=== PATIENT | female | born 1985 | race Caucasian/White ===

== ENCOUNTER 2022-12-29 17:28 | Emergency (ER) | payer OTHER ==
--- OUTSIDE RECORDS SUMMARY | 2022-12-29 17:33 | XMS REPORT | Continuity of Care Document ---
:1985 Author Organization [facility] t Address [address] [place] [address] Care Team Providers Name Role Phone John Lilly Attending Clinician Unavailable Alvarez Oro Attending Clinician Unavailable Karthik Watson Attending Clinician Unavailable Nena Pulido Attending Clinician Unavailable Simon Roberts Attending Clinician Unavailable Poonam Sanders I Attending Clinician Unavailable Stacy Dash Admitting Clinician Unavailable Luis Toussaint Admitting Clinician Unavailable Christoph Roth Admitting Clinician Unavailable Poonam Sanders I Admitting Clinician Unavailable Payers Payer Name Policy Type Policy Number Effective Date Expiration Date S ource Problems This patient has no known problems. Allergies, Adverse Reactions, Alerts Allergy Allergy Status Severity Reaction(s) Onset Inactive Treating Comm ents Source Name Type Date Date Clinician FENG DA Active PA ITCHING, [facility] PATCH RASH, 03-29 [place] SWELLING 00:00: [facility] nicotine DA Active PA ITCHING AND [facility] REDNESS TO - [place] AREA 00:00: [address] nicotine DA Active PA [facility] 4- [place] 00:00: [address] nicotine DA Active PA [facility] 2-09 [place] 00:00: [facility] nicotine DA Active PA ITCHING AND [facility] RED[facility] TO 2-09 [place] AREA 00:00: [facility] nicotine DA Active PA 2016- [facility] 0-30 [facility] 00:00: [facility] nicotine DA Active PA ITCHING AND 2016-12 [facility] REDNESS TO 0-30 [place] AREA 00:00: Maral [facility] Medications This patient has no known medications. Procedures Procedure Date / Time Performed Performing Clinician [facility] armond [id number] 2021-08-11 00:00:00 FLORO.03 [facility] [id number] 2021-08-10 00:00:00 HOUAN [facility] [id number] 2020-06-28 00:00:00 [facility] Encounters Start End Encounter Admission Attending Care Care Encounter Source Date/Time Date/Time Type Type Clinicians Facility Department ID 2021-03-28 Inpatient [facility] [id number] [facility] 14:15:09 03 [facility] 2021-03-09 Inpatient [facility] [id number] [facility] 02:15:57 00 [facility] 2021-01-10 Inpatient [facility] [id number] [facility] 15:39:19 49 [facility] 2020-06-28 Inpatient [facility] ER [id number] [facility] 04:12:00 98 [facility] 2022-12-05 2022-12-05 Emergency EM Lilly, [facility] ER [id number] [facility] 07:56:00 11:10:00 John 62 [facility] 2022-10-06 2022-10-07 Emergency EM Rauhut, [facility] ER [id number] [facility] 04:07:00 12:30:00 Medda 51 [facility] 2022-10-04 2022-10-04 Emergency EM Walter, [facility] ER [id number] [facility] 13:52:00 15:34:00 Karthik 36 [facility] 2021-09-20 2021-10-01 Outpatient EL Duaneri, [facility] PT [id number] [facility] 08:00:00 00:00:00 Ammar 91 [facility] 2021-08-23 2021-08-23 Inpatient EM Dancel, [facility] ER [id number] [facility] 13:31:00 18:13:00 Simon Morganu meghna [facility] 2021-08-18 2021-08-18 Outpatient NIRMAL Pulido [facility] PT [id number] [facility] 10:18:00 10:18:00 Amfelton 87 [facility] 2021-08-10 2021-08-17 Inpatient NIRAML Sanders [facility] OBPP [id number] [facility] 08:21:00 17:09:00 Poonam 64 [facility] Results Test Description Test Time Test Comments Results Result Comments Source DRUG OF ABUSE SCREEN URINE 2022-12-05 10:32:00 Test Item Value Reference Range Interpretation Comme nts UR COCAINE (test code = NEGATIVE NEGATIVE COCAU) UR MDMA (test code = MDMAQLU) POSITIVE NEGATIVE A If confirmatory testing required, contact laborat ory. UR CANNABINOIDS (test code = POSITIVE NEGATIVE A If confirmatory testing required, CANU) contact laborat ory. UR AMPHETAMINE (test code = POSITIVE NEGATIVE A If confirmatory testing required, AMPHU) contact laborat ory. UR BARBITURATE QUAL (test NEGATIVE NEGATIVE code = BARBQLU) UR BENZODIAZEPINE (test code NEGATIVE NEGATIVE = BENZU) UR OPIATES QUAL (test code = NEGATIVE NEGATIVE OPIAQLU) UR PHENCYCLIDINE (PCP) (test NEGATIVE NEGATIVE Urine Drug Abuse Screen provides code = PHENCU) preliminary r esults thatmay be confirmed by samara marrero methods (i.e., GC/MS) a t areference laboratory. Res ults of screen may not be usedin c riminal justice, job performance or professionalcre dential review, or custody issues. Negative [place] Level ng/ml ------- ----- Cocaine 300 Methampheta mine (Ecstacy) 500 Cannabinoids (T HC) 50 Amphetamine 1000 Barbiturat es 200 Benzodiazepines 200 Opiates 300 Phencyclidine ( PCP) 25 UA RFLX MICROSCOPIC [id number] 10:03:00 Test Item Value Reference Range Interpretation Comments UA COLOR (test code = COLU) Yellow YELLOW UA APPEARANCE (test code = Turbid CLEAR APPU) UA GLUCOSE DIPSTICK (test NORMAL mg/dL NEGATIVE code = DGLUU) UA BILIRUBIN DIPSTICK (test NEGATIVE NEGATIVE code = BILU) UA KETONE DIPSTICK (test NEGATIVE mg/dL NEGATIVE code = KETU) UA SPECIFIC GRAVITY (test 1.024 1.001-1.035 N code = SGU) UA BLOOD DIPSTICK (test code TRACE NEGATIVE = LATOYA) UA PH DIPSTICK (test code = 6.5 5.5-7.0 N ROGELIO) UA PROTEIN DIPSTICK (test 20 mg/dL NEGATIVE code = PROU) UA UROBILINOGEN DIPSTICK NORMAL mg/dL NORMAL (test code = URO) UA NITRITE DIPSTICK (test NEGATIVE NEGATIVE code = RUTHIE) UA LEUKOCYTE ESTERASE 250 NEGATIVE A DIPSTICK (test code = LEUU) UA COMMENT (test code = VOLUME 10-12 ML COMU) URINE SPECIMEN DESCRIPTION Clean Catch (test code = UASPEC) UA WBC (test code = WBCU) < 10 #/HPF 0-10 UA SQUAMOUS CELLS (test code 61 - 80 #/LPF <100 A = SQU) UA CULTURE NEEDED? (test Criteria not met code = UACULT) Indication for culture: RiskForSepsis-no oth srcURINE SOURCE: Clean CatchUA [id number] 10:03:00 Test Item Value Reference Range Interpretation Comments UA RBC (test code = RBCU) 6-10 #/HPF NONE SEEN A UA BACTERIA (test code = BACU) Trace HPF NONE SEEN UA MUCUS (test code = MUCU) 2+ #/lpf NONE SEEN Indication for culture: RiskForSepsis-no oth srcURINE SOURCE: Clean Catch- CT C- SPINE W/O [id number] 09:01:00 [facility] 1985 Sex: F Patient Name: TAYLOR SHULTZ Unit No: [id number] EXAMS: CPT CODE: [id number] CT C-SPINE W/O CONT 82832 Reason: R arm pain, numbness Exam: - CT HEAD/BRAIN W/O CONT, - CT C-SPINE W/O CONT Indication: altered mental status. Numbness. Weakness. Technique: Multidetector, helically acquisition images (5 mm slice thickness) were obtained from the base of the skull to the vertex without contrast enhan cement. Additional axial images through the cervical spine were obtained. Coronal and sagittal reconstructions were performed. This CT exam was performed using one or more of the following dose reduction techniques: Automated exposure control; Adjustment of the mA and/or kV according to patient size;Use of iterative reconstruction technique. Comparison: January 10, 2021 Findings: Brain: Ventricles are symmetric in shape and size. There is no evidence of hemorrhage, acute ischemic change or intra-/extra-axial fluid collections. The basal cisterns are well visualized. There is no mass lesion, mass effect or midline shift. The bony calvarium is intact. Paranasal sinuses and mastoid air cells are adequately aerated. Cervical spine: There is slight reversal of the normal cervical lordosis at the C4-5 level. Disc space narrowing with osteophytosis is seen at the C5-6 level. The vertebral body heights are preserved. The precervical soft tissues are within normal limits. The odontoid is well positioned within the lateral masses of C1. There is no bony encroachment on the central canal. There is no pneumothorax. Impression: There is no radiographic evidence of acute intracranial abnormality. No evidence of acute bony abnormality involving the cervical spine. Degenerative disc disease of the lower cervical spine. Location: C1 at 0901 Reported and signed by: Naya Erickson MD CC: Carmella Andino NP; Christoph Roth; John Lilly MD Technologist: Claribel Hunter CT Trscrpt Dt/ (0901)t.[email or web address] Orig Print D/T: S: 12/05/2022 (0 904) CTDI: DLP: [facility] NAME: TAYLOR SHULTZ [address] PHYS: [id number] - [place] [address] : 1985 AGE: 37 SEX: F LOC: CELINA PHONE #: [phone] EXAM DATE: 12/05/2022 STATUS: REG ER FAX #: RAD NO: DC Dt: PAGE 1 Signed Report- CT HEAD/BRAIN W/O CONT 2022-12-05 09:01:00 [facility] : 1985 Sex: F Patient Name: TAYLOR SHULTZ Unit No: [id number] EXAMS: CPT CODE: [id number] CT HEAD/BRAIN W/O CONT 69767 Reason: altered mental status Exam: - CT HEAD/BRAIN W/O CONT, - CT C-SPINE W/O CONT Indication: altered mental status. Numbness. Weakness. Technique: Multidetector, helically acquisition images (5 mm slice thickness) were obtained from the base of the skull to the vertex without contrast enhancement. Additional axial images through the cervical spine were obtained. Coronal and sagittal reconstructions were performed. This CT exam was performed using one or more of the following dose reduction techniques: Automated exposure control; Adjustment of the mA and/or kV according to patient size; Use of iterative reconstruction technique. Comparison: January 10, 2021 Findings: Brain: Ventricles are symmetric in shape and size. There is no evidence of hemorrhage, acute ischemic change or intra-/extra-axial fluid collections. The basal cisterns are well visualized. There is no mass lesion, mass effect or midline shift. The bony calvarium is intact. Paranasal sinuses and mastoid air cells areadequately aerated. Cervical spine: There is slight reversal of the normal cervical lordosis at the C4-5 level. Disc space narrowing with osteophytosis is seen at the C5-6 level. The vertebral body heights are preserved. The precervical soft tissues are within normal limits. The odontoid is well positioned within the lateral masses of C1. There is no bony encroachment on the central canal. There is no pneumothorax. Impression: There is no radiographic evidence of acute intracranial abnormality. No evidence of acute bony abnormality involving the cervical spine. Degenerative disc disease of the lower cervical spine. Location: C1 at 0901 Reported and signed by: Naya Erickson MD CC: Carmella Andino NP; Christoph Roth; John Lilly MD Technologist: Claribel Hunter CT Trscrpt Dt/ (900)t.[email or web address] Orig Print D/T: S: 12/05/2022(903) CTDI: DLP: [facility] NAME: TAYLOR SHULTZ [address] [facility] PHYS: [place] [address] : 1985 AGE: 37 SEX: F LOC: CELINA PHONE #: [phone] EXAM DATE: 12/05/2022 STATUS: REG ER FAX #: RAD NO: DC Dt: PAGE 1 Signed ReportBASI METABOLIC [id number] 08:50:00 Test Item Value Reference Range Interpretation Comments SODIUM (test code = 140 MMOL/L 133-145 N NA) POTASSIUM (test code 3.8 MMOL/L 3.6-5.2 N = K) CHLORIDE (test code 103 MMOL/L 100-108 N = CL) CARBON DIOXIDE (test 29 MMOL/L 22-32 N code = CO2) GLUCOSE (test code = 103 MG/DL 65-99 H Results of this assay GLU) method may be f alsely depressed orele vated if patient is taki ng sulfasalazine. BLOOD UREA NITROGEN 8 MG/DL 6-20 N (test code = BUN) GLOMERULAR 93 64-149 N The Glomerular FILTRATION RATE Filtration R ate is a (test code = GFR) calculated parameterbased on serum Creatinine, pat ient age and sex. GFR va luesless than 60 mL/min/ 1.73 square meters a re indicative ofCh ronic Kidney Disease. Values less than 15 mL/min/1.73squa re meters indicate Kidney failure. The calculation for GFR is based on the CK D-EPI (2020) calculat ion. This formulais race indifferent and is the recommended for susanna for GFRby the Natio nal Kidney Foundati on for Adults.The GFR will not calculate if th e sex is unknown or if thepatient's ag e is <18 years. CREATININE (test 0.83 MG/DL 0.60-1.00 N code = CREAT) CALCIUM (test code = 9.1 MG/DL 8.7-10.5 N CA) HEPATIC FUNCTION [id number] 08:50:00 Test Item Value Reference Range Interpretation Comments TOTAL PROTEIN (test 7.2 G/DL 6.4-8.2 N code = PROT) ALBUMIN (test code = 4.3 G/DL 3.4-5.0 N ALB) GLOBULIN (test code = 2.9 G/DL 1.5-3.8 N GLOB) ALBUMIN/GLOBULIN RATIO 1.5 1.1-2.2 N (test code = A/G) BILIRUBIN TOTAL (test 0.6 MG/DL 0.0-1.0 N code = BILT) BILIRUBIN DIRECT (test 0.2 MG/DL 0.0-0.3 N code = BILD) BILIRUBIN INDIRECT 0.4 MG/DL 0.0-0.7 N (test code = BILIND) SGOT/AST (test code = 18 Units/L 15-37 N Result s of this assay AST) method may be f alsely depressed orele vated if patient is t aking sulfasalazine. SGPT/ALT (test code = 23 Units/L 30-65 L Result s of this assay ALT) method may be f alsely depressed orele vated if patient is t aking sulfasalazine. ALKALINE PHOSPHATASE 49 Units/L 50-136 L TOTAL (test code = ALKP) [id number] 08:50:00 Test Item Value Reference Range Interpretation Comments CK (test code = CKT) 250 Units/L 26-192 H TROP-I HIGH [id number] 08:50:00 Test Item Value Reference Range Interpretation Comments TROP-I HIGH SENSITIVITY < 4 ng/L < 51 - T he use of serial (test code = TROPIHS) sampli ng and testing protocol is a recommended pra ctice.- An elevated tro ponin level alone is often not sufficient for diagnosis of myocardial infarction.Resu lts of this assay meth od may be falsely depr essed orelevated if p atient is taking high doses of Biotin. [id number] 08:50:00 Test Item Value Reference Range Interpretation Comments ALCOHOL (test code = < 3 MG/DL 0-10 N 0 - 10 : Should be ALC) interpreted as NEGATIVE. 11 - 50: None t o mild euphoria. 51 - 100: Mild influence on vi kelley and dark adaptation . > 80: Legal intoxicat ion; Depression of C NS; Increasing degr ee of poisoning. > 40 0: Fatalities repo rted. Results are for medical purposes only a nd not forlegal or emp loyment evaluative purp oses. HCG SERUM [id number] 08:37:00 Test Item Value Reference Range Interpretation Comments HCG SERUM QUAL NEGATIVE NEGATIVE False negativ es may occur (test code = when levels of hCGare below HCGQL) 10 mIU/ml. When is still suspec ana, a new specimenshould be obtained after 48 hours and re-tested.If wa iting 48 hours is not me dically advisable,the t est result should be confi rmed using aquantitative h CG assay. CBC W/AUTO [id number] 08:30:00 Test Item Value Reference Range Interpretation Comments WHITE BLOOD CELL (test code = 5.58 x10 3/uL 4.80-10.80 N WBC) RED BLOOD CELL (test code = 4.30 x10 6/uL 4.2-5.4 N RBC) HEMOGLOBIN (test code = HGB) 13.5 G/DL 12.0-16.0 N HEMATOCRIT (test code = HCT) 40.5 % 37-47 N MEAN CELL VOLUME (test code = 94.2 FL 81-99 N MCV) MEAN CELL HGB (test code = MCH) 31.4 PG 27-31 H MEAN CELL HGB CONCENTRATION 33.3 G/DL 33-37 N (test code = MCHC) RED CELL DISTRIBUTION WIDTH 13.2 % 11.5-14.5 N (test code = RDW) PLATELET COUNT (test code = 296 x10 3/uL 150-450 N PLT) MEAN PLATELET VOLUME (test code 9.7 FL 7.4-10.4 N = MPV) NEUTROPHIL % (test code = NT%) 50.6 % 42-86 N IMMATURE GRANULOCYTE % (test 0.2 % 0.0-2.0 N code = IG%) LYMPHOCYTE % (test code = LY%) 34.6 % 24-44 N MONOCYTE % (test code = MO%) 8.6 % 0.0-4.0 H EOSINOPHIL % (test code = EO%) 5.6 % 0.0-2.7 H BASOPHIL % (test code = BA%) 0.4 % 0.0-0.5 N NUCLEATED RBC % (test code = 0.0 % 0.0-0.0 N NRBC%) NEUTROPHIL # (test code = NT#) 2.83 x10 3/uL 1.8-7.7 N IMMATURE GRANULOCYTE # (test 0.01 x10 3/uL 0.00-0.03 N code = IG#) LYMPHOCYTE # (test code = LY#) 1.93 x10 3/uL 1.0-4.8 N MONOCYTE # (test code = MO#) 0.48 x10 3/uL 0.0-0.8 N EOSINOPHIL # (test code = EO#) 0.31 x10 3/uL 0.0-0.5 N BASOPHIL # (test code = BA#) 0.02 x10 3/uL 0.0-0.2 N NUCLEATED RBC # (test code = 0.0 X10 3/uL 0.0-0.2 N NRBC#) - XR CHEST 1 [id number] 08:21:00 [facility] : 1985 Sex: F Patient Name: TAYLOR SHULTZ Unit No: [id number] EXAMS: CPT CODE: [id number] XR CHEST 1 V [id number] Reason: altered mental status Chest one view AP 12/05/2022 8:21 AM CLINICAL HISTORY: Altered mentalstatus COMPARISON: 10/04/2022 LOCATION: W1 FINDINGS: The lungs are clear. Cardiomediastinal contours are within normal limits. The central pulmonary vasculature is not engorged. IMPRESSION: Unremarkablefrontal chest radiograph. at 0821 Reported and signed by: Khang Ye MD CC: Carmella Andino CONVERTER SUPERVISOR; Christoph Roth; John Lilly MD Technologist: Erwin Osullivan RT Trscrpt Dt/ (0821)[email or web address] Orig Print D/T: S: 12/05/2022 (0 824) [facility] NAME: TAYLOR SHULTZ [address] [facility] PHYS: John Rodriguez [place] [address] : 1985 AGE: 37 SEX: F LOC: CELINA PHONE #: [phone] EXAM DATE: 12/05/2022 STATUS: REG ER FAX #: RAD NO: DC Dt: PAGE 1 Signed ReportCOVID 19 Asymptomatic IH AG 2022-10-07 10:08:00 Test Item Value Reference Interpretation Comments Range COVID 19 NEGATIVE Negative " The Sadia YANCI S Antigen [facility]T Asymptomatic IH does not dif ferentiate AG (test code = betweenSARS- CoV and SARS-CoV-2 " COVNONPUIAG) The Sadia SARS Antigen EVERETT employs immunofluoresce ncetechnology in a sandwich giovanny gn that is used with Sadia tode tect nucleocapsid protein from SA RS-CoV and SARS-CoV-2.This test allows for the detection o f SARS-CoV [id number]. The test detects, but does not differentiate,b etween the two viruses. " Resu lts are for the identification of CKFY-MkA-5ycmli ocapsid protein antigen. Antige n is generallydetect able in upper respiratory spe cimens during the acutephase of i nfection. Positive result s indicate the presenceof alex l antigens, but clinical correl ation with patienthistory and other diagnostic info rmation is necessary todet ermine infection status. Positiv e results do not rule outbacteri al infection or co-infection wi th other viruses. Theagent detect ed may not be the definite cause of disease. " Negative result s should be treated as pres umptive " This test has not be en FDA cleared or approved; the t esthas been authorized by [facility] under an Emergency UseAu thorization (EUA) for use by labo ratories certified under the CLIA that meet the requir ements to perform moderate,high o r waived complexity test s. This test is authorized foru se at the Point of Care (POC), i.e., in patient caresettings op erating under a CLIA Certificat e of Waiver,Certific ate of Compliance, or Certificate of Accreditation [id number] 09:53:00 Test Item Value Reference Range Interpretation Comments ACETAMINOPHEN (test < 1 MCG/ML 10-30 L Acetamin ophen is code = ACET) possibly toxic at levels of: 1. m ore than 150 MCG/ML 4 hours post mario stion. 2. more than 50 MCG/ML 12 hours post ingestion. [id number] 09:53:00 Test Item Value Reference Range Interpretation Comments SALICYLATE (test code = 4 MG/DL 0-20 N Refe rence Range: TRAY) Analgesic...... ....... ..... < 10 mg/d l Therapeutic.... ....... ..... 15-20 mg/ dl Mild Toxicity....... ....... > 30 mg/dl Rocio re Toxicity....... ..... > 60 mg/dl DRUG OF ABUSE SCREEN [id number] 09:13:00 Test Item Value Reference Interpretation Comments Range UR COCAINE (test NEGATIVE NEGATIVE code = COCAU) UR MDMA (test code = NEGATIVE NEGATIVE MDMAQLU) UR CANNABINOIDS NEGATIVE NEGATIVE (test code = CANU) UR AMPHETAMINE (test NEGATIVE NEGATIVE code = AMPHU) UR BARBITURATE QUAL NEGATIVE NEGATIVE (test code = BARBQLU) UR BENZODIAZEPINE NEGATIVE NEGATIVE (test code = BENZU) UR OPIATES QUAL NEGATIVE NEGATIVE (test code = OPIAQLU) UR PHENCYCLIDINE NEGATIVE NEGATIVE Urine Drug Abuse Screen (PCP) (test code = provides preliminary PHENCU) results thatmay be confirmed by samara marrero methods (i.e., GC/MS) at [facility]. Results of scre en may not be usedin crimi nal justice, job performance or professionalcre dential review, or infa nt custody issues. Negativ e Beau[place] Level ng/ml ------- ----- Cocaine 300 Methamphetamine (Ecstacy) 500 Cannabinoid s (THC) 50 Amphetamine 100 0 Barbiturates 20 0 Benzodiazepines 200 Opiates 300 Phencyclid ine (PCP) 25 HEPATIC FUNCTION [id number] 07:26:00 Test Item Value Reference Range Interpretation Comments TOTAL PROTEIN (test 7.0 G/DL 6.4-8.2 N code = PROT) ALBUMIN (test code = 3.9 G/DL 3.4-5.0 N ALB) GLOBULIN (test code = 3.1 G/DL 1.5-3.8 N GLOB) ALBUMIN/GLOBULIN RATIO 1.3 1.1-2.2 N (test code = A/G) BILIRUBIN TOTAL (test 0.3 MG/DL 0.0-1.0 N code = BILT) BILIRUBIN DIRECT (test 0.1 MG/DL 0.0-0.3 N code = BILD) BILIRUBIN INDIRECT 0.2 MG/DL 0.0-0.7 N (test code = BILIND) SGOT/AST (test code = 13 Units/L 15-37 L Result s of this assay AST) method may be f alsely depressed orele vated if patient is t aking sulfasalazine. SGPT/ALT (test code = 16 Units/L 30-65 L Result s of this assay ALT) method may be f alsely depressed orele vated if patient is t aking sulfasalazine. ALKALINE PHOSPHATASE 63 Units/L 50-136 N TOTAL (test code = ALKP) THYROID STIMULATING [id number] 07:26:00 Test Item Value Reference Range Interpretation Comments THYROID STIMULATING 1.02 0.42-5.47 N Micro-In ternational HORMONE (test code = TSH) Un its/LResults of this assay method ma y be falsely depress ed orelevated if p atient is taking high doses of Biotin. BASIC METABOLIC [id number] 06:17:00 Test Item Value Reference Range Interpretation Comments SODIUM (test code = 143 MMOL/L 133-145 N NA) POTASSIUM (test code 3.8 MMOL/L 3.6-5.2 N = K) CHLORIDE (test code 107 MMOL/L 100-108 N = CL) CARBON DIOXIDE (test 27 MMOL/L 22-32 N code = CO2) GLUCOSE (test code = 93 MG/DL 65-99 N Results of this assay GLU) method may be f alsely depressed orele vated if patient is taki ng sulfasalazine. BLOOD UREA NITROGEN 13 MG/DL 6-20 N (test code = BUN) GLOMERULAR 98 64-149 N The Glomerular FILTRATION RATE Filtration R ate is a (test code = GFR) calculated parameterbased on serum Creatinine, pat ient age and sex. GFR va luesless than 60 mL/min/ 1.73 square meters a re indicative ofCh ronic Kidney Disease. Values less than 15 mL/min/1.73squa re meters indicate Kidney failure. The calculation for GFR is based on the CK D-EPI (2020) calculat ion. This formulais race indifferent and is the recommended for susnana for GFRby the Natio nal Kidney Foundati on for Adults.The GFR will not calculate if th e sex is unknown or if thepatient's ag e is <18 years. CREATININE (test 0.80 MG/DL 0.60-1.00 N code = CREAT) CALCIUM (test code = 8.9 MG/DL 8.7-10.5 N CA) [id number] 06:17:00 Test Item Value Reference Range Interpretation Comments ALCOHOL (test code = < 3 MG/DL 0-10 N 0 - 10 : Should be ALC) interpreted as NEGATIVE. 11 - 50: None t o mild euphoria. 51 - 100: Mild influence on vi kelley and dark adaptation . > 80: Legal intoxicat ion; Depression of C NS; Increasing degr ee of poisoning. > 40 0: Fatalities repo rted. Results are for medical purposes only a nd not forlegal or emp loyment evaluative purp oses. UR HCG [id number] 04:38:00 Test Item Value Reference Range Interpretation Comments UR HCG QUAL (test NEGATIVE NEGATIVE False nega tives may occur code = HCGQLU) when levels o f hCGare below 20 mIU/ml. When is still suspec ana, a new specimenshould be obtained after 48 hours and re-tested.If wa iting 48 hours is not me dically advisable,the t est result should be confi rmed using aquantitative h CG assay. UA RFLX [id number] 04:36:00 Test Item Value Reference Range Interpretation Comments UA COLOR (test code = Yellow YELLOW COLU) UA APPEARANCE (test code TURBID CLEAR = APPU) UA GLUCOSE DIPSTICK (test NEGATIVE mg/dL NEGATIVE code = DGLUU) UA BILIRUBIN DIPSTICK NEGATIVE NEGATIVE (test code = BILU) UA KETONE DIPSTICK (test 15 mg/dL NEGATIVE A code = KETU) UA SPECIFIC GRAVITY (test 1.025 1.001-1.035 N code = SGU) UA BLOOD DIPSTICK (test 3+ NEGATIVE A code = LATOYA) UA PH DIPSTICK (test code 6.0 5.5-7.0 N = ROGELIO) UA PROTEIN DIPSTICK (test 500 mg/dL NEGATIVE A code = PROU) UA UROBILINOGEN DIPSTICK NORMAL mg/dL NORMAL (test code = URO) UA NITRITE DIPSTICK (test NEGATIVE NEGATIVE code = RUTHIE) UA LEUKOCYTE ESTERASE 500 NEGATIVE A DIPSTICK (test code = LEUU) UA COMMENT (test code = LESS THAN 10 ML VOL COMU) URINE SPECIMEN Clean Catch DESCRIPTION (test code = UASPEC) UA [id number] 04:36:00 Test Item Value Reference Range Interpretation Comments UA WBC (test code = WBCU) 10 - 20 #/hpf <10 A UA RBC (test code = RBCU) 3-5 #/hpf NONE SEEN UA SQUAMOUS CELLS (test code > 100 #/lpf <100 A = SQU) UA CULTURE NEEDED? (test Criteria not met code = UACULT) UA BACTERIA (test code = 1+ #/hpf NONE SEEN BACU) CBC W/AUTO [id number] 04:31:00 Test Item Value Reference Range Interpretation Comments WHITE BLOOD CELL (test code = 8.33 x10 3/uL 4.80-10.80 N WBC) RED BLOOD CELL (test code = 4.21 x10 6/uL 4.2-5.4 N RBC) HEMOGLOBIN (test code = HGB) 13.1 G/DL 12.0-16.0 N HEMATOCRIT (test code = HCT) 40.4 % 37-47 N MEAN CELL VOLUME (test code = 96.0 FL 81-99 N MCV) MEAN CELL HGB (test code = MCH) 31.1 PG 27-31 H MEAN CELL HGB CONCENTRATION 32.4 G/DL 33-37 L (test code = MCHC) RED CELL DISTRIBUTION WIDTH 13.5 % 11.5-14.5 N (test code = RDW) PLATELET COUNT (test code = 369 x10 3/uL 150-450 N PLT) MEAN PLATELET VOLUME (test code 9.8 FL 7.4-10.4 N = MPV) NEUTROPHIL % (test code = NT%) 47.2 % 42-86 N LYMPHOCYTE % (test code = LY%) 41.7 % 24-44 N MONOCYTE % (test code = MO%) 8.3 % 0.0-4.0 H EOSINOPHIL % (test code = EO%) 2.6 % 0.0-2.7 N BASOPHIL % (test code = BA%) 0.2 % 0.0-0.5 N NEUTROPHIL # (test code = NT#) 3.93 x10 3/uL 1.8-7.7 N LYMPHOCYTE # (test code = LY#) 3.47 x10 3/uL 1.0-4.8 N MONOCYTE # (test code = MO#) 0.69 x10 3/uL 0.0-0.8 N EOSINOPHIL # (test code = EO#) 0.22 x10 3/uL 0.0-0.5 N BASOPHIL # (test code = BA#) 0.02 x10 3/uL 0.0-0.2 N - XR CHEST 1 [id number] 14:27:00 [facility] 1985 Sex: F Patient Name: TAYLOR SHULTZ Unit No: [id number] EXAMS: CPT CODE: [id number] XR CHEST 1 V 97089 Reason: COUGH HISTORY: chest pain Location code: B2 FINDINGS: Frontal view of the chest demonstrates normal cardiomediastinal silhouette. The trachea is midline. The lungs are clear. There is no effusion or pneumothorax. The bones are intact. IMPRESSION: No acute pulmonary process. at 1427 Reported and signed by: Maximino Hazel MD CC: Palomo Eagle Technologist: Wendie Au RT CT; Ernie Carter Students Trscrpt Dt/ (1427)Marilou.RK5 Orig Print D/T: S: 10/04/2022 (1430) [place] [facility] NAME: TAYLOR SHULTZ [facility] [address] PHYS: PEPSEAN.Demian - Karthik Watson MD [address] : 1985 AGE: 36 SEX: F [place], [place] [address] LOC: D.PER PHONE #: [phone] EXAM DATE: 10/04/2022 STATUS: PRE ER FAX #: RAD NO: DC Dt: PAGE 1 Signed ReportUA RFLX MICROSCOPIC [id number] 16:15:00 Test Item Value Reference Range Interpretation Comments UA COLOR (test code = COLU) YELLOW YELLOW UA APPEARANCE (test code = CLEAR CLEAR APPU) UA GLUCOSE DIPSTICK (test NEGATIVE mg/dL NEGATIVE code = DGLUU) UA BILIRUBIN DIPSTICK (test NEGATIVE NEGATIVE code = BILU) UA KETONE DIPSTICK (test NEGATIVE mg/dL NEGATIVE code = KETU) UA SPECIFIC GRAVITY (test 1.025 1.001-1.035 N code = SGU) UA BLOOD DIPSTICK (test code 3+ NEGATIVE A = LATOYA) UA PH DIPSTICK (test code = 5.0 5.5-7.0 L ROGELIO) UA PROTEIN DIPSTICK (test 15 mg/dL NEGATIVE A code = PROU) UA UROBILINOGEN DIPSTICK NORMAL mg/dL NORMAL (test code = URO) UA NITRITE DIPSTICK (test NEGATIVE NEGATIVE code = RUTHIE) UA LEUKOCYTE ESTERASE 100 NEGATIVE A DIPSTICK (test code = LEUU) UA COMMENT (test code = VOLUME 10-12 ML COMU) URINE SPECIMEN DESCRIPTION Clean Catch (test code = UASPEC) UA WBC (test code = WBCU) < 10 #/hpf <10 UA SQUAMOUS CELLS (test code 0 - 20 #/lpf <100 = SQU) UA CULTURE NEEDED? (test Criteria not met code = UACULT) Indication for culture: RiskForSepsis-no oth srcURINE SOURCE: ccUA MICROSCOPIC 2021-08-23 16:15:00 Test Item Value Reference Range Interpretation Comments UA RBC (test code = RBCU) 3-5 #/hpf NONE SEEN UA BACTERIA (test code = BACU) 1+ #/hpf NONE SEEN UA MUCUS (test code = MUCU) 2+ #/lpf NONE SEEN A Indication for culture: RiskForSepsis-no oth srcURINE SOURCE: ccCOMPREHENSIVE METABOLIC [id number] 15:48:00 Test Item Value Reference Range Interpretation Comments SODIUM (test code = 140 MMOL/L 133-145 N NA) POTASSIUM (test code = 3.2 MMOL/L 3.6-5.2 L K) CHLORIDE (test code = 103 MMOL/L 100-108 N CL) CARBON DIOXIDE (test 27 MMOL/L 22-32 N code = CO2) GLUCOSE (test code = 92 MG/DL 65-99 N Results of this GLU) assay method ma y be falsely depress ed orelevated if patient is taki ng sulfasalazine. BLOOD UREA NITROGEN 20 MG/DL 6-20 N (test code = BUN) GLOMERULAR FILTRATION 66 64-149 N Report ing units: RATE (test code = GFR) mL/mi n/1.73m\\S\\2 (Modified MDRD Formula) CREATININE (test code 0.96 MG/DL 0.60-1.00 N = CREAT) TOTAL PROTEIN (test 7.9 G/DL 6.4-8.2 N code = PROT) ALBUMIN (test code = 3.7 G/DL 3.4-5.0 N ALB) GLOBULIN (test code = 4.2 G/DL 1.5-3.8 H GLOB) ALBUMIN/GLOBULIN RATIO 0.9 1.1-2.2 L (test code = A/G) CALCIUM (test code = 8.9 MG/DL 8.7-10.5 N CA) BILIRUBIN TOTAL (test 0.5 MG/DL 0.0-1.0 N code = BILT) SGOT/AST (test code = 12 Units/L 15-37 L Result s of this AST) assay method ma y be falsely depress ed orelevated if patient is taki ng sulfasalazine. SGPT/ALT (test code = 19 Units/L 30-65 L Result s of this ALT) assay method ma y be falsely depress ed orelevated if patient is taki ng sulfasalazine. ALKALINE PHOSPHATASE 104 Units/L 50-136 N TOTAL (test code = ALKP) CBC W/AUTO [id number] 15:41:00 Test Item Value Reference Range Interpretation Comments WHITE BLOOD CELL (test code = 8.40 x10 3/uL 4.80-10.80 N WBC) RED BLOOD CELL (test code = 3.14 x10 6/uL 4.2-5.4 L RBC) HEMOGLOBIN (test code = HGB) 9.8 G/DL 12.0-16.0 L HEMATOCRIT (test code = HCT) 30.3 % 37-47 L MEAN CELL VOLUME (test code = 96.5 FL 81-99 N MCV) MEAN CELL HGB (test code = MCH) 31.2 PG 27-31 H MEAN CELL HGB CONCENTRATION 32.3 G/DL 33-37 L (test code = MCHC) RED CELL DISTRIBUTION WIDTH 12.9 % 11.5-14.5 N (test code = RDW) PLATELET COUNT (test code = 699 x10 3/uL 150-450 H PLT) MEAN PLATELET VOLUME (test code 9.0 FL 7.4-10.4 N = MPV) NEUTROPHIL % (test code = NT%) 56.0 % 42-86 N LYMPHOCYTE % (test code = LY%) 32.0 % 24-44 N MONOCYTE % (test code = MO%) 6.9 % 0.0-4.0 H EOSINOPHIL % (test code = EO%) 4.4 % 0.0-2.7 H BASOPHIL % (test code = BA%) 0.7 % 0.0-0.5 H NEUTROPHIL # (test code = NT#) 4.70 x10 3/uL 1.8-7.7 N LYMPHOCYTE # (test code = LY#) 2.69 x10 3/uL 1.0-4.8 N MONOCYTE # (test code = MO#) 0.58 x10 3/uL 0.0-0.8 N EOSINOPHIL # (test code = EO#) 0.37 x10 3/uL 0.0-0.5 N BASOPHIL # (test code = BA#) 0.06 x10 3/uL 0.0-0.2 N ACUTE HEPATITIS [id number] 06:11:00 Test Item Value Reference Range Interpretation Comments AB HEPATITIS A IGM Negative Negative (test code = HAVMAB) AG HEPATITIS B Negative Negative SURFACE (test code = HBSAG) AB HEPATITIS B CORE Negative Negative IGM (test code = HBCMAB) AB HEPATITIS C (test < 0.1 0.0-0.9 INFCE R esult Units: s/co code = HCVAB) ratio Negative : < 0.8 Indeterminate: 0.8 - 0.9 Positive: > 0.9 The CDC recommends that a positive HCV an tibody result be follo wed up with a HCV Nucl eic Acid Amplification t est ([id number]).Perfor med At: [facility] [id number] [facility] [place] [id number] lilliam Emmanuel MD Ph:[phone] [id number] 17:38:00 Test Item Value Reference Range Interpretation Comments AMMONIA (test code = 24 UMOL/L 11-35 N Results of this assay AMM) method may be f alsely depressed orele vated if patient is taki ng sulfasalazine. COMPREHENSIVE METABOLIC [id number] 17:38:00 Test Item Value Reference Range Interpretation Comments SODIUM (test code = 139 MMOL/L 133-145 N NA) POTASSIUM (test code = 4.4 MMOL/L 3.6-5.2 N K) CHLORIDE (test code = 102 MMOL/L 100-108 N CL) CARBON DIOXIDE (test 28 MMOL/L 22-32 N code = CO2) GLUCOSE (test code = 108 MG/DL 65-99 H Results of this GLU) assay method ma y be falsely depress ed orelevated if patient is taki ng sulfasalazine. BLOOD UREA NITROGEN 16 MG/DL 6-20 N (test code = BUN) GLOMERULAR FILTRATION 68 64-149 N Report ing units: RATE (test code = GFR) mL/mi n/1.73m\\S\\2 (Modified MDRD Formula) CREATININE (test code 0.94 MG/DL 0.60-1.00 N = CREAT) TOTAL PROTEIN (test 6.2 G/DL 6.4-8.2 L code = PROT) ALBUMIN (test code = 2.7 G/DL 3.4-5.0 L ALB) GLOBULIN (test code = 3.5 G/DL 1.5-3.8 N GLOB) ALBUMIN/GLOBULIN RATIO 0.8 1.1-2.2 L (test code = A/G) CALCIUM (test code = 9.0 MG/DL 8.7-10.5 N CA) BILIRUBIN TOTAL (test 0.2 MG/DL 0.0-1.0 N code = BILT) SGOT/AST (test code = 16 Units/L 15-37 N Result s of this AST) assay method ma y be falsely depress ed orelevated if patient is taki ng sulfasalazine. SGPT/ALT (test code = 36 Units/L 30-65 N Result s of this ALT) assay method ma y be falsely depress ed orelevated if patient is taki ng sulfasalazine. ALKALINE PHOSPHATASE 112 Units/L 50-136 N TOTAL (test code = ALKP) THYROID STIMULATING [id number] 17:38:00 Test Item Value Reference Range Interpretation Comments THYROID STIMULATING 1.61 0.42-5.47 N Micro-In ternational HORMONE (test code = TSH) Un its/LResults of this assay method ma y be falsely depress ed orelevated if p atient is taking high doses of Biotin. CBC W/AUTO [id number] 17:15:00 Test Item Value Reference Range Interpretation Comments WHITE BLOOD CELL (test code = 8.96 x10 3/uL 4.80-10.80 N WBC) RED BLOOD CELL (test code = 2.99 x10 6/uL 4.2-5.4 L RBC) HEMOGLOBIN (test code = HGB) 9.4 G/DL 12.0-16.0 L HEMATOCRIT (test code = HCT) 28.5 % 37-47 L MEAN CELL VOLUME (test code = 95.3 FL 81-99 N MCV) MEAN CELL HGB (test code = MCH) 31.4 PG 27-31 H MEAN CELL HGB CONCENTRATION 33.0 G/DL 33-37 N (test code = MCHC) RED CELL DISTRIBUTION WIDTH 12.4 % 11.5-14.5 N (test code = RDW) PLATELET COUNT (test code = 582 x10 3/uL 150-450 H PLT) MEAN PLATELET VOLUME (test code 9.3 FL 7.4-10.4 N = MPV) NEUTROPHIL % (test code = NT%) 66.8 % 42-86 N IMMATURE GRANULOCYTE % (test 4.2 % 0.0-2.0 H code = IG%) LYMPHOCYTE % (test code = LY%) 21.0 % 24-44 L MONOCYTE % (test code = MO%) 5.1 % 0.0-4.0 H EOSINOPHIL % (test code = EO%) 2.3 % 0.0-2.7 N BASOPHIL % (test code = BA%) 0.6 % 0.0-0.5 H NUCLEATED RBC % (test code = 0.0 % 0.0-0.0 N NRBC%) NEUTROPHIL # (test code = NT#) 5.98 x10 3/uL 1.8-7.7 N IMMATURE GRANULOCYTE # (test 0.38 x10 3/uL 0.00-0.03 H code = IG#) LYMPHOCYTE # (test code = LY#) 1.88 x10 3/uL 1.0-4.8 N MONOCYTE # (test code = MO#) 0.46 x10 3/uL 0.0-0.8 N EOSINOPHIL # (test code = EO#) 0.21 x10 3/uL 0.0-0.5 N BASOPHIL # (test code = BA#) 0.05 x10 3/uL 0.0-0.2 N NUCLEATED RBC # (test code = 0.0 X10 3/uL 0.0-0.2 N NRBC#) UA RFLX MICROSCOPIC [id number] 14:55:00 Test Item Value Reference Range Interpretation Comments UA COLOR (test code = COLU) Light-Yellow YELLOW UA APPEARANCE (test code = CLEAR CLEAR APPU) UA GLUCOSE DIPSTICK (test NORMAL mg/dL NEGATIVE code = DGLUU) UA BILIRUBIN DIPSTICK (test NEGATIVE NEGATIVE code = BILU) UA KETONE DIPSTICK (test NEGATIVE mg/dL NEGATIVE code = KETU) UA SPECIFIC GRAVITY (test 1.014 1.001-1.035 N code = SGU) UA BLOOD DIPSTICK (test code 3+ NEGATIVE A = LATOYA) UA PH DIPSTICK (test code = 7.0 5.5-7.0 N ROGELIO) UA PROTEIN DIPSTICK (test NEGATIVE mg/dL NEGATIVE code = PROU) UA UROBILINOGEN DIPSTICK NORMAL mg/dL NORMAL (test code = URO) UA NITRITE DIPSTICK (test NEGATIVE NEGATIVE code = RUTHIE) UA LEUKOCYTE ESTERASE NEGATIVE NEGATIVE DIPSTICK (test code = LEUU) UA COMMENT (test code = VOLUME 10-12 ML COMU) URINE SPECIMEN DESCRIPTION Clean Catch (test code = UASPEC) UA WBC (test code = WBCU) < 10 #/HPF 0-10 UA SQUAMOUS CELLS (test code 81 - 100 #/LPF <100 A = SQU) UA CULTURE NEEDED? (test Criteria not met code = UACULT) Indication for culture: Dysuria/FrequencyURINE SOURCE: Clean CatchUA MICROSCOPIC 2021-08-16 14:55:00 Test Item Value Reference Range Interpretation Comments UA RBC (test code = RBCU) >50 #/HPF NONE SEEN A UA MUCUS (test code = MUCU) RARE #/lpf NONE SEEN Indication for culture: Dysuria/FrequencyURINE SOURCE: Clean CatchUA RFLX MICROSCOPIC [id number] 14:51:00 Test Item Value Reference Range Interpretation Comments UA COLOR (test code = COLU) Light-Yellow YELLOW UA APPEARANCE (test code = CLEAR CLEAR APPU) UA GLUCOSE DIPSTICK (test NORMAL mg/dL NEGATIVE code = DGLUU) UA BILIRUBIN DIPSTICK (test NEGATIVE NEGATIVE code = BILU) UA KETONE DIPSTICK (test code NEGATIVE mg/dL NEGATIVE = KETU) UA SPECIFIC GRAVITY (test 1.014 1.001-1.035 N code = SGU) UA BLOOD DIPSTICK (test code 3+ NEGATIVE A = LATOYA) UA PH DIPSTICK (test code = 7.0 5.5-7.0 N ROGELIO) UA PROTEIN DIPSTICK (test NEGATIVE mg/dL NEGATIVE code = PROU) UA UROBILINOGEN DIPSTICK NORMAL mg/dL NORMAL (test code = URO) UA NITRITE DIPSTICK (test NEGATIVE NEGATIVE code = RUTHIE) UA LEUKOCYTE ESTERASE NEGATIVE NEGATIVE DIPSTICK (test code = LEUU) UA COMMENT (test code = COMU) VOLUME 10-12 ML URINE SPECIMEN DESCRIPTION Clean Catch (test code = UASPEC) UA WBC (test code = WBCU) #/hpf <10 UA SQUAMOUS CELLS (test code #/lpf <100 = SQU) UA CULTURE NEEDED? (test code = UACULT) Indication for culture: Dysuria/FrequencyURINE SOURCE: Clean CatchUA MICROSCOPIC 2021-08-16 14:51:00 Test Item Value Reference Range Interpretation Comments UA RBC (test code = RBCU) #/HPF NONE SEEN Indication for culture: Dysuria/FrequencyURINE SOURCE: Clean CatchUA RFLX MICROSCOPIC [id number] 14:51:00 Test Item Value Reference Range Interpretation Comments UA COLOR (test code = COLU) Light-Yellow YELLOW UA APPEARANCE (test code = CLEAR CLEAR APPU) UA GLUCOSE DIPSTICK (test NORMAL mg/dL NEGATIVE code = DGLUU) UA BILIRUBIN DIPSTICK (test NEGATIVE NEGATIVE code = BILU) UA KETONE DIPSTICK (test code NEGATIVE mg/dL NEGATIVE = KETU) UA SPECIFIC GRAVITY (test 1.014 1.001-1.035 N code = SGU) UA BLOOD DIPSTICK (test code 3+ NEGATIVE A = LATOYA) UA PH DIPSTICK (test code = 7.0 5.5-7.0 N ROGELIO) UA PROTEIN DIPSTICK (test NEGATIVE mg/dL NEGATIVE code = PROU) UA UROBILINOGEN DIPSTICK NORMAL mg/dL NORMAL (test code = URO) UA NITRITE DIPSTICK (test NEGATIVE NEGATIVE code = RUTHIE) UA LEUKOCYTE ESTERASE NEGATIVE NEGATIVE DIPSTICK (test code = LEUU) UA COMMENT (test code = COMU) VOLUME 10-12 ML URINE SPECIMEN DESCRIPTION Clean Catch (test code = UASPEC) UA WBC (test code = WBCU) #/hpf <10 UA SQUAMOUS CELLS (test code #/lpf <100 = SQU) UA CULTURE NEEDED? (test code = UACULT) Indication for culture: Dysuria/FrequencyURINE SOURCE: Clean CatchUA MICROSCOPIC 2021-08-16 14:51:00 Test Item Value Reference Range Interpretation Comments UA RBC (test code = RBCU) #/HPF NONE SEEN Indication for culture: Dysuria/FrequencyURINE SOURCE: Clean CatchSURGICAL 2021-08-14 15:02:00 Test Item Value Reference Range Interpretation Comments SURGICAL (test code = SURG) RUN DATE: 08/14/21 [facility] LAB LIVE PAGE 1 RUN TIME: 1502 Specimen Inquiry RUN USER: INTERFACE PATIENT: TAYLOR SHULTZ LOC: MarysolAmandaArmond U #: [id number] AGE/SX: 35/F ROOM: Marysol62 RE08/10/21REG DR: Poonam Sanders MD : [birth year] BED: 1 DIS: STATUS: ADM IN TLOC: SPEC #: [id number] RECD: 08/10/21 STATUS: KHADAR CROWLEY #: [id number] MILO: 08/10/[address]: Poonam Sanders MD ENTERED: 08/10/21 SP TYPE: SURGICAL OTHR DR: ORDERED: PATH5 CODES: [id number] - PLACENTA, NOS HISTOLOGY: TISSUE ID BLK PCS ASAD LEV PROCEDURE DISPOSITION ____ ___ ___ ___ PLACENTA, NOS A 1-3 ICD CODES: O43.90 - UNSPECIFIED PLACENTAL DISORDER, UNSPECIFIED TRIMESTER PROCEDURES: PATHGM5 (Incomplete) TISSUES: A. PLACENTA, NOS CLINICAL HISTORY 31.4 IUP; LABOR; PPROM FINAL DIAGNOSIS PLACENTA: 1. UMBILICAL CORD - THREE VESSEL CORD. 2. MEMBRANES - NO PATHOLOGIC CHANGE. 3. PLACENTAL DISC - VILLOUS PATTERN COMPATIBLE WITH GESTATIONAL AGE. Job - [id number] GROSS DESCRIPTION The case is received in one formalin container labeled with the patient's name and source. The specimen is designated "placenta" and consists of a 614.94 gram, 18 x 18 x 2.5 cm [place] placenta with attached membranes and umbilical cord. The pink-monae wrinkled and translucent membranes are marginally inserted. The white-monae trivascular umbilical cord is received in two pieces, and measures 21 cm in length x 0.8-1.2 cm in diameter. The cord displays vessels that appear to be tortuous throughout 80% of the length of the cord. The umbilical cord is eccentrically located measuring 4 cm to the closest placental edge. The blue-arango surface displays surface vessels that are small-medium caliber and in their usual arborizing pattern. The red-brown maternal surface displays moderately disrupted cotyledons with a minimal amount of loosely adherent clotted blood and a scant amount of microcalcifications. Sectioning reveals a red-brown, spongy cut surface, with no discrete masses or lesions identified grossly. CONTINUED ON NEXT PAGE RUN DATE: 08/14/21 [facility] LAB LIVE PAGE 2 RUN TIME: 1502 Specimen Inquiry RUN USER: INTERFACE SPEC #: [id number] PATIENT: TAYLOR SHULTZ #[id number] (Continued) GROSS DESCRIPTION (Continued) [employer] sections are submitted in three blocks to include membrane roll and umbilical cord, and maternal surfaces. MICROSCOPIC DESCRIPTION Sections of the umbilical cord show a three vessel cord without inflammatory changes. Sections of the membranes show an intact chorion and amnion. No chorioamnionitis is seen. Sections of the placental disc show a villous pattern compatible with the stated gestational age. No infarcts are seen. Job - [id number] Job - [id number] SPECIMEN PROCESSING * PROCESSING PERFORMED AT [facility] SURGERY INFORMATION Surgery date 08/10/21 Surgeon(s): DR. SANDERS Signed SIGNATURE ON FILE Justice Sweeney 08/14/21 1502 END OF REPORT AG HEPATITIS B [id number] 12:11:00 Test Item Value Reference Range Interpretation Comments AG HEPATITIS B SURFACE Negative Negative Perfo rmed At: HD (test code = HBSAG) [facility] [address] [place], [place] [id number] Emmanuel MD Ph:[phone] HIV 1 2 COMBO AG/AB [id number] 12:11:00 Test Item Value Reference Range Interpretation Comments HIV 1 2 COMBO AG/AB Non Reactive Non Reactive Performe d At: HD SCREEN (test code = [facility] [address] [id number]) [place], [place] [id number] Emmanuel MD Ph:[phone] HIV 4th Generat ion Detects HIV-spe cific antibodies and HIV-p24 antigen. : with patient consentRAPID PLASMA [id number] 09:53:00 Test Item Value Reference Range Interpretation Comments RAPID PLASMA REAGIN (test code = Nonreactive Nonreactive RPR) BASIC METABOLIC [id number] 05:24:00 Test Item Value Reference Range Interpretation Comments SODIUM (test code = 134 MMOL/L 133-145 N NA) POTASSIUM (test code = 4.2 MMOL/L 3.6-5.2 N K) CHLORIDE (test code = 101 MMOL/L 100-108 N CL) CARBON DIOXIDE (test 30 MMOL/L 22-32 N code = CO2) GLUCOSE (test code = 96 MG/DL 65-99 N Results of this assay GLU) method may be f alsely depressed orele vated if patient is t aking sulfasalazine. BLOOD UREA NITROGEN 6 MG/DL 6-20 N (test code = BUN) GLOMERULAR FILTRATION 108 64-149 N Report ing units: RATE (test code = GFR) mL/mi n/1.73m\\S\\2 (Modified MDRD Formula) CREATININE (test code 0.63 MG/DL 0.60-1.00 N = CREAT) CALCIUM (test code = 7.8 MG/DL 8.7-10.5 L CA) HGB [id number] 04:54:00 Test Item Value Reference Range Interpretation Comments HEMOGLOBIN (test code = HGB) 7.9 G/DL 12.0-16.0 L HEMATOCRIT (test code = HCT) 24.4 % 37-47 L MEAN CELL HGB CONCENTRATION (test 32.4 G/DL 33-37 L code = MCHC) - US SOFT TISSUE - [id number] 17:10:00 [facility] : 1985 Sex: F Patient Name: TAYLOR SHULTZ Unit No: [id number] EXAMS: CPT CODE: [id number] US SOFT TISSUE - TORSO 80391 - US SOFT TISSUE - TORSO REASON FOR EXAM: 35-year-old female presenting for possible left axillaryabscess. COMPARISON: None. TECHNIQUE: Grayscale and color flow imaging of the left axilla was performed. FINDINGS: There is a 4.8 cm isoechoic mass with irregular borders in the left axilla with overlying skin thickening. No internal blood flow is identified however, there is mild peripheral blood flow. No drainable fluid collections are identified. IMPRESSION: 4.8 cm mass in the left axilla may represent phlegmonous changes. No drainable fluid collection identified. Recommend evaluation at dedicated breast center for further evaluation. BIRADS: CATEGORY 0: INCOMPLETE. NEED ADDITIONAL IMAGING EVALUATION FOR INTERNAL CODING PURPOSES ONLY RESULT CODE: 0 Location:C1 at 1710 Reported and signed by: Norma Weaver MD CC: Dedrick Killian Jr, MD; Poonam Sanders MD; Genesis Ledesma NP Technologist: Jessica HINKLE Trnscrbd D/ (1710) [email or web address] Orig Print D/T: S: 08/10/2021 (4283) Probe: [facility] Area NAME: TYALOR SHULTZ [place] [address] PHYS: [email or web address] - Dedrick [place] [address] : 1985 AGE: 35 SEX: F LOC: D.Y251 1 PHONE #: [phone] EXAM DATE: 08/10/2021 STATUS: ADM IN FAX #: RAD NO: Page 1 Signed Report- [facility]/[id number] 11:55:00 [facility] [place] : 1985 Sex: F Patient Name: TAYLOR SHULTZ Unit No: [id number] EXAMS: CPT CODE: [id number] DUP VEIN UNI/LTD [id number] DUPLEX VENOUS SONOGRAPHY Date:08/10/2021 11:00 AM History: LLE PAIN. Comparison: None available. Technique: The lower extremity veins were evaluated with arango scale, color Doppler and pulse wave ultrasound.Findings: Left Lower Extremity: No hypoechoic intraluminal filling defects. Appropriate compression, augmentation and phasicity. IMPRESSION: No evidence of deep vein thrombosis (DVT) or superficial venous thrombosis (SVT). Report signed by radiologist: Vicente Desir M.D., MBA. at 1155 Reported and signed by: Vicente Desir MD CC: Poonam Sanders MD Technologist: Dhruv HINKLE Trnscrbd D/ ([id number]) [id number] Orig Print D/T: S: 08/10/2021 ([id number]) Probe: [facility] NAME: TAYLOR SHULTZ [id number] PHYS: [place] [id number] : 1985 AGE: 35 SEX: F LOC: D.[id number] 1 PHONE #: [phone] EXAM DATE: 08/10/2021 STATUS: ADM IN FAX #: RAD NO: Page 1 Signed ReportDRUG OF ABUSE SCREEN [id number] 10:14:00 Test Item Value Reference Interpretation Comments Range UR COCAINE (test NEGATIVE NEGATIVE code = COCAU) UR MDMA (test code = NEGATIVE NEGATIVE MDMAQLU) UR CANNABINOIDS NEGATIVE NEGATIVE (test code = CANU) UR AMPHETAMINE (test POSITIVE NEGATIVE A If conf irmatory testing code = AMPHU) required, cont act laboratory. UR BARBITURATE QUAL NEGATIVE NEGATIVE (test code = BARBQLU) UR BENZODIAZEPINE NEGATIVE NEGATIVE (test code = BENZU) UR OPIATES QUAL NEGATIVE NEGATIVE (test code = OPIAQLU) UR PHENCYCLIDINE NEGATIVE NEGATIVE Urine Drug Abuse Screen (PCP) (test code = provides preliminary PHENCU) results thatmay be confirmed by al ternate methods (i.e., GC/[facility]) [facility]. Results of scre en may not be usedin crimi nal justice, job performance or professionalcre dential review, or infa nt custody issues. Negativ e [place] Level ng/ml ------- ----- Cocaine 300 Methamphetamine (Ecstacy) 500 Cannabinoid s (THC) 50 Amphetamine 100 0 Barbiturates 20 0 Benzodiazepines 200 Opiates 300 Phencyclid ine (PCP) 25 COVID 19 Asymptomatic IH [id number] 09:50:00 Test Item Value Reference Interpretation Comments Range COVID 19 NEGATIVE Negative " The [employer] YANCI S Antigen [facility] Asymptomatic IH does not dif ferentiate AG (test code = betweenSARS- CoV and SARS-CoV-2 " COVNONPUIAG) The [employer] SARS Antigen [employer] employs immunofluoresce ncetechnology in a sandwich giovanny gn that is used with Sad[facility] tode tect nucleocapsid protein from SA RS-CoV and SARS-CoV-2.This test allows for the detection o f SARS-CoV [id number]-[id number]-3. The test detects, but does not differentiate,b etween the two viruses. " Resu lts are for the identification of NHSZ-FvB-3mnuzc ocapsid protein antigen. Antige n is generallydetect able in upper respiratory spe cimens during the acutephase of i nfection. Positive result s indicate the presenceof alex l antigens, but clinical correl ation with patienthistory and other diagnostic info rmation is necessary todet ermine infection status. Positiv e results do not rule outbacteri al infection or co-infection wi th other viruses. Theagent detect ed may not be the definite cause of disease. " Negative result s should be treated as pres umptive " This test has not be en FDA cleared or approved; the t esthas been authorized by [facility] under an Emergency UseAu thorization (EUA) for use by [facility] certified under the CLIA that meet the requir ements to perform moderate,high o r waived complexity test s. This test is authorized foru se at the Point of Care (POC), i.e., in patient caresettings op erating under a CLIA Certificat e of Waiver,Certific ate of Compliance, or Certificate of Accreditation PROTHROMBIN [id number] 09:19:00 Test Item Value Reference Range Interpretation Comments PROTHROMBIN TIME 10.6 SECONDS 9.6-12.3 N PATIENT (test code = PTP) INTERNATIONAL NORMAL 0.94 Recomme nded INR range RATIO (test code = (warfarin therapy): INR) 2.0 - 3.0INR (International Normalized Rati o) should beused w hen interpreting or al anticoaglulant therapy. For at rial fibrillation an d treatment orprevention of deep vein thrombosis . Patients with Palmaz-Dinesh s tent *: 2.0 - 3.0 Pa tients with mechanical heart valve *: 2.5 - 3.5 Patients with flex-stent *: 3 .0 - 4.0(*) = family nurse's suggested range Is patient on anticoagulants? No AnticoagulantsTHROMBOPLASTIN TIME PARTIAL 2021-08-10 09:19:00 Test Item Value Reference Range Interpretation Comments THROMBOPLASTIN TIME 28.8 SECONDS 22.5-35.3 N *Therap eutic level PARTIAL (test code = for hep darcy: 1.5 - PTT) 2.5 times the average patient value of 30.0 seconds. The aP TT tet should not be used to evaluat e low moleculat weigh t heparin anticoagulant therapy. Is patient on anticoagulants? No [id number] 09:19:00 Test Item Value Reference Range Interpretation Comments FIBRINOGEN (test code = FIB) 694 mg/dl 200-400 H Is patient on anticoagulants? No AnticoagulantsCBC W/AUTO [id number] 09:06:00 Test Item Value Reference Range Interpretation Comments WHITE BLOOD CELL (test code = 11.19 x10 3/uL 4.80-10.80 H WBC) RED BLOOD CELL (test code = 3.10 x10 6/uL 4.2-5.4 L RBC) HEMOGLOBIN (test code = HGB) 9.8 G/DL 12.0-16.0 L HEMATOCRIT (test code = HCT) 30.0 % 37-47 L MEAN CELL VOLUME (test code = 96.8 FL 81-99 N MCV) MEAN CELL HGB (test code = 31.6 PG 27-31 H MCH) MEAN CELL HGB CONCENTRATION 32.7 G/DL 33-37 L (test code = MCHC) RED CELL DISTRIBUTION WIDTH 12.8 % 11.5-14.5 N (test code = RDW) PLATELET COUNT (test code = 265 x10 3/uL 150-450 N PLT) MEAN PLATELET VOLUME (test 10.5 FL 7.4-10.4 H code = MPV) NEUTROPHIL % (test code = NT%) 77.7 % 42-86 N IMMATURE GRANULOCYTE % (test 0.6 % 0.0-2.0 N code = IG%) LYMPHOCYTE % (test code = LY%) 13.6 % 24-44 L MONOCYTE % (test code = MO%) 5.7 % 0.0-4.0 H EOSINOPHIL % (test code = EO%) 2.0 % 0.0-2.7 N BASOPHIL % (test code = BA%) 0.4 % 0.0-0.5 N NUCLEATED RBC % (test code = 0.0 % 0.0-0.0 N NRBC%) NEUTROPHIL # (test code = NT#) 8.70 x10 3/uL 1.8-7.7 H IMMATURE GRANULOCYTE # (test 0.07 x10 3/uL 0.00-0.03 H code = IG#) LYMPHOCYTE # (test code = LY#) 1.52 x10 3/uL 1.0-4.8 N MONOCYTE # (test code = MO#) 0.64 x10 3/uL 0.0-0.8 N EOSINOPHIL # (test code = EO#) 0.22 x10 3/uL 0.0-0.5 N BASOPHIL # (test code = BA#) 0.04 x10 3/uL 0.0-0.2 N NUCLEATED RBC # (test code = 0.0 X10 3/uL 0.0-0.2 N NRBC#) HCG [id number] 10:01:00 Test Item Value Reference Range Interpretation Comments HCG SERUM (test code 82145 0-6 H Reporti ng Units: = HCGQT) micro-internati onal units/mL Gestat ional Age hCG level------ --------- ---------0.2-1 week 5-501-2 weeks 50-5002-3 weeks 100-5,0003-4 we eks 500-10,0004-5 w eeks 1,000-50,0005-6 weeks 10,000-100,0006 -8 weeks 15,000-200,0002 -3 months 10,000-100,000 hCG levels rise rapidly du ring for 1 0-12 weeksand slowly decline to 1,000 - 50,000 in third trimester. Allison facturer Disclaimer:Valu es from different assay methods may vary. The use o fthis assay to monitor or t o diagnose patients with c anceror any condition unrel ated to has n ot beenapproved by the FDA or the manufacture r of this assay. GLYCOSYLATED HEMOGLOBIN (HA1C)2021-03-30 13:01:00 Test Item Value Reference Range Interpretation Comments GLYCOSYLATED HEMOGLOBIN (HA1C) 5.3 % TOT HB 4.5-6.2 N (test code = GLYHGB) PED-PLEASE ADD-ON TO BLOOD IN YOUR LAB. 0427:[id number] PROFILE (CORONARY RISK) 2021-03-30 09:26:00 Test Item Value Reference Range Interpretation Comments TRIGLYCERIDES (test 62 MG/DL 30-200 N code = TRIG) CHOLESTEROL (test code 157 MG/DL 122-200 N = CHOL) CHOLESTEROL/HDL RATIO 2.4 1.5-4.5 N 1. Ini tial (test code = CHOLHDL) classi fication based on total choles terol: <200 mg/dl Giovanny rable cholesterol 200 -239 mg/dl Borderlin e high risk cholestero l >240 mg/dl High ris k cholesterol2. I nitial classification based on LDL choleste rol: <130 mg/dl Giovanny rable LDL cholesterol 130-159 mg/dl Borderline high risk LDL >159 mg/dl High risk LDL choles terol3. HDL < 35 mg/dl represent incre ased CHD risk; HDL > 60 mg/dl represent decreased CHD r isk.4. Chol/HDL > 5.0 represent incre ased CHD risk in men ; Chol/HDL > 4.5 represent incre ased CHD risk in wom en. HDL CHOLESTEROL (test 66 MG/DL 40-60 H code = HDL) LIPOPROTEIN LDL (test 79 MG/DL 62-130 N code = LDL) LIPOPROTEIN VLDL (test 12 MG/DL 3-60 N code = VLDL) PED-PLEASE ADD-ON TO BLOOD IN YOUR LAB. 0427;[id number],C951,C986- US PREG 1ST TRIMTR 2021-03-28 23:05:00 [facility] 1985 Sex: F Patient Name: TAYLOR SHULTZ Unit No: [id number] EXAMS: CPT CODE: [id number] US PREG 1ST TRIMTR 18217 PROCEDURE INFORMATION: Exam: US First Trimester, Transabdominal Exam date and time: 03/28/2021 9:48 PM Age: 35 years old Clinical indication: Lmp or gestational age (in weeks): 2-9-21; Antepartum complications; Bleeding; complicated by abdominal or pelvic pain; Lower; First trimester; Pre gnant; Patient HX: PT states: [place] was [place] back, she does not remember any trauma to her abdomen. 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 She was told she needed to follow up with an oncologist but she has not done so yet, has not been officially dx with anything regarding the tumors; Additional info: , vaginal bleeding, confirm iup TECHNIQUE: Imaging protocol: Real-time transabdominal obstetricalultrasound of the maternal pelvis and a first trimester , less than 14 weeks 0 days, with image documentation. COMPARISON: US PREG 1ST TRIMTR 03/06/2021 11:04 AM FINDINGS: The uterus measures 15.1 x 7.6 by 10 cm. There is a single living monoamniotic monochorionic intrauterine gestation. The gestational sac shape and volume of amniotic fluid is normal for gestational age. MISA by today's measurements is 12 weeks 2 days. heart rate is 166 bpm. Again seen is a subchorionic hemorrhage alongthe anterior left aspect of the gestational sac. This appears stable. This measures approximately 6.3 x 0.9 x 6.3 cm. As seen previously the gestational sac has a oblong shape. The placenta is posterior , approximately 8 mm from the internal os. The right ovary measures 3.9 x 3.7 x 4 cm. There is a 2.9 x 3.1 x 3 cm hypoechoic region in the right ovary which is now complex. This is likely degeneratingcorpus luteal cyst.The left ovary measures 2.9 x 1.7 x 2.5 cm. There is a 1.1 cm cyst in the left ovary. Color-flow was obtained within both ovaries. IMPRESSION: 1. There is a single living intrauterine gestation with MISA by today's ultrasound 12 weeks, 2days. There has been normal interval growth. 2. Subchorionic hemorrhage again seen similar in size to the prior study. 3. Posterior placenta which is low lying. This could be re-evaluated on 2nd trimester exam. INTERNAL CODING PURPOSES ONLY RESULT CODE: [facility] Area NAME: TAYLOR SHULTZ [address] [facility] PHYS: [place] [address] : 1985 AGE: 35 SEX: F LOC: CELINA PHONE #: [phone] EXAM DATE: 03/28/2021 STATUS: REG ER FAX #: RAD NO: Page 1 Signed Report (CONTINUED) Patient Name: TAYLOR SHULTZ Unit No: [id number] EXAMS: CPT CODE: [id number] US PREG 1STTRIMTR 17047 (Continued) at 2305 Reported and signed by: Miri MONTANEZ CC: Stacy Dash MD; Ezequiel Thompson DO; Curt Brown MD Technologist: Analia Hussein Trnscrbd D/ ([id number]) [email or web address] Orig Print D/T:S: 03/28/2021 (0836) Probe: [facility] Area NAME: TAYLOR SHULTZ [address] PHYS: [address] [address] [place] [address] : 1985 AGE: 35 SEX: F LOC: CELINA PHONE #: [phone] EXAM DATE: 03/28/2021 STATUS: REG ER FAX #: RAD NO: Page 2 Signed ReportHCG [id number] 15:10:00 Test Item Value Reference Range Interpretation Comments HCG SERUM (test code 68389 0-6 H Reporti ng Units: = HCGQT) micro-internati onal units/mL Gestat ional Age hCG level------ --------- ---------0.2-1 week 5-501-2 weeks 50-5002-3 weeks 100-5,0003-4 we eks 500-10,0004-5 w eeks 1,000-50,0005-6 weeks 10,000-100,0006 -8 weeks 15,000-200,0002 -3 months 10,000-100,000 hCG levels rise rapidly du ring for 1 0-12 weeksand slowly decline to 1,000 - 50,000 in third trimester. Allison facturer Disclaimer:Valu es from different assay methods may vary. The use o fthis assay to monitor or t o diagnose patients with c anceror any condition unrel ated to has n ot beenapproved by the FDA or the manufacture r of this assay. UA RFLX [id number] 14:32:00 Test Item Value Reference Range Interpretation Comments UA COLOR (test code = COLU) YELLOW YELLOW UA APPEARANCE (test code = HAZY CLEAR APPU) UA GLUCOSE DIPSTICK (test NEGATIVE mg/dL NEGATIVE code = DGLUU) UA BILIRUBIN DIPSTICK (test NEGATIVE NEGATIVE code = BILU) UA KETONE DIPSTICK (test code NEGATIVE mg/dL NEGATIVE = KETU) UA SPECIFIC GRAVITY (test 1.015 1.001-1.035 N code = SGU) UA BLOOD DIPSTICK (test code 4+ NEGATIVE A = LATOYA) UA PH DIPSTICK (test code = 6.5 5.5-7.0 N ROGELIO) UA PROTEIN DIPSTICK (test NEGATIVE mg/dL NEGATIVE code = PROU) UA UROBILINOGEN DIPSTICK NORMAL mg/dL NORMAL (test code = URO) UA NITRITE DIPSTICK (test NEGATIVE NEGATIVE code = RUTHIE) UA LEUKOCYTE ESTERASE TRACE NEGATIVE A DIPSTICK (test code = LEUU) UA COMMENT (test code = COMU) VOLUME 10-12 ML URINE SPECIMEN DESCRIPTION Clean Catch (test code = UASPEC) UA [id number] 14:32:00 Test Item Value Reference Range Interpretation Comments UA WBC (test code = WBCU) < 10 #/hpf <10 UA RBC (test code = RBCU) 2-5 #/hpf NONE SEEN A UA BACTERIA (test code = FEW #/hpf NONE SEEN A BACU) UA SQUAMOUS CELLS (test code 0 - 20 #/lpf <100 = SQU) UA AMORPHOUS SEDIMENT (test FEW #/lpf None seen code = AMORU) UA CULTURE NEEDED? (test Criteria not met code = UACULT) UA RFLX [id number] 14:25:00 Test Item Value Reference Range Interpretation Comments UA COLOR (test code = COLU) YELLOW YELLOW UA APPEARANCE (test code = HAZY CLEAR APPU) UA GLUCOSE DIPSTICK (test NEGATIVE mg/dL NEGATIVE code = DGLUU) UA BILIRUBIN DIPSTICK (test NEGATIVE NEGATIVE code = BILU) UA KETONE DIPSTICK (test code NEGATIVE mg/dL NEGATIVE = KETU) UA SPECIFIC GRAVITY (test 1.015 1.001-1.035 N code = SGU) UA BLOOD DIPSTICK (test code 4+ NEGATIVE A = LATOYA) UA PH DIPSTICK (test code = 6.5 5.5-7.0 N ROGELIO) UA PROTEIN DIPSTICK (test NEGATIVE mg/dL NEGATIVE code = PROU) UA UROBILINOGEN DIPSTICK NORMAL mg/dL NORMAL (test code = URO) UA NITRITE DIPSTICK (test NEGATIVE NEGATIVE code = RUTHIE) UA LEUKOCYTE ESTERASE TRACE NEGATIVE A DIPSTICK (test code = LEUU) UA COMMENT (test code = COMU) VOLUME 10-12 ML URINE SPECIMEN DESCRIPTION Clean Catch (test code = UASPEC) UA [id number] 14:25:00 Test Item Value Reference Range Interpretation Comments UA WBC (test code = WBCU) #/hpf <10 UA RBC (test code = RBCU) #/hpf NONE SEEN UA SQUAMOUS CELLS (test code = SQU) #/lpf <100 UA CULTURE NEEDED? (test code = UACULT) UA RFLX [id number] 14:25:00 Test Item Value Reference Range Interpretation Comments UA COLOR (test code = COLU) YELLOW YELLOW UA APPEARANCE (test code = HAZY CLEAR APPU) UA GLUCOSE DIPSTICK (test NEGATIVE mg/dL NEGATIVE code = DGLUU) UA BILIRUBIN DIPSTICK (test NEGATIVE NEGATIVE code = BILU) UA KETONE DIPSTICK (test code NEGATIVE mg/dL NEGATIVE = KETU) UA SPECIFIC GRAVITY (test 1.015 1.001-1.035 N code = SGU) UA BLOOD DIPSTICK (test code 4+ NEGATIVE A = LATOYA) UA PH DIPSTICK (test code = 6.5 5.5-7.0 N ROGELIO) UA PROTEIN DIPSTICK (test NEGATIVE mg/dL NEGATIVE code = PROU) UA UROBILINOGEN DIPSTICK NORMAL mg/dL NORMAL (test code = URO) UA NITRITE DIPSTICK (test NEGATIVE NEGATIVE code = RUTHIE) UA LEUKOCYTE ESTERASE TRACE NEGATIVE A DIPSTICK (test code = LEUU) UA COMMENT (test code = COMU) VOLUME 10-12 ML URINE SPECIMEN DESCRIPTION Clean Catch (test code = UASPEC) UA [id number] 14:25:00 Test Item Value Reference Range Interpretation Comments UA WBC (test code = WBCU) #/hpf <10 UA RBC (test code = RBCU) #/hpf NONE SEEN UA SQUAMOUS CELLS (test code = SQU) #/lpf <100 UA CULTURE NEEDED? (test code = UACULT) COMPREHENSIVE METABOLIC [id number] 14:23:00 Test Item Value Reference Range Interpretation Comments SODIUM (test code = 138 MMOL/L 133-145 N NA) POTASSIUM (test code = 3.3 MMOL/L 3.6-5.2 L K) CHLORIDE (test code = 102 MMOL/L 100-108 N CL) CARBON DIOXIDE (test 28 MMOL/L 22-32 N code = CO2) GLUCOSE (test code = 86 MG/DL 65-99 N Results of this assay GLU) method may be f alsely depressed orele vated if patient is t aking sulfasalazine. BLOOD UREA NITROGEN 7 MG/DL 6-20 N (test code = BUN) GLOMERULAR FILTRATION 106 64-149 N Report ing units: RATE (test code = GFR) mL/mi n/1.73m\\S\\2 (Modified MDRD Formula) CREATININE (test code 0.64 MG/DL 0.60-1.00 N = CREAT) TOTAL PROTEIN (test 6.3 G/DL 6.4-8.2 L code = PROT) ALBUMIN (test code = 3.2 G/DL 3.4-5.0 L ALB) GLOBULIN (test code = 3.1 G/DL 1.5-3.8 N GLOB) ALBUMIN/GLOBULIN RATIO 1.0 1.1-2.2 L (test code = A/G) CALCIUM (test code = 8.7 MG/DL 8.7-10.5 N CA) BILIRUBIN TOTAL (test 0.3 MG/DL 0.0-1.0 N code = BILT) SGOT/AST (test code = 13 Units/L 15-37 L Result s of this assay AST) method may be f alsely depressed orele vated if patient is t aking sulfasalazine. SGPT/ALT (test code = 17 Units/L 30-65 L Result s of this assay ALT) method may be f alsely depressed orele vated if patient is t aking sulfasalazine. ALKALINE PHOSPHATASE 62 Units/L 50-136 N TOTAL (test code = ALKP) [id number] 14:23:00 Test Item Value Reference Range Interpretation Comments ACETAMINOPHEN (test < 1 MCG/ML 10-30 L Acetamin ophen is code = ACET) possibly toxic at levels of: 1. m ore than 150 MCG/ML 4 hours post mario stion. 2. more than 50 MCG/ML 12 hours post ingestion. [id number] 14:23:00 Test Item Value Reference Range Interpretation Comments SALICYLATE (test code = 4 MG/DL 0-20 N Refe rence Range: TRAY) Analgesic...... ....... ..... < 10 mg/d l Therapeutic.... ....... ..... 15-20 mg/ dl Mild Toxicity....... ....... > 30 mg/dl Rocio re Toxicity....... ..... > 60 mg/dl [id number] 14:23:00 Test Item Value Reference Range Interpretation Comments ALCOHOL (test code = < 3 MG/DL 0-10 N 0 - 10 : Should be ALC) interpreted as NEGATIVE. 11 - 50: None t o mild euphoria. 51 - 100: Mild influence on vi kelley and dark adaptation . > 80: Legal intoxicat ion; Depression of C NS; Increasing degr ee of poisoning. > 40 0: Fatalities repo rted. Results are for medical purposes only a nd not forlegal or emp loyment evaluative purp oses. HCG SERUM [id number] 14:20:00 Test Item Value Reference Range Interpretation Comments HCG SERUM QUAL POSITIVE NEGATIVE A Called to an d read back by (test code = FLORENTINO SHELLEY, RN HCGQL) .D.[email or web address].AS1, 03/28/21-1420.C onditions other than preg belen may give positive r esultswith this assay. A c onfirmed diagnosis of pr egnancy shouldbe made o nly after clinical evalua tion by a physician. Non- Human Chorionic Gonad otropin (HCG) substance s such asanti-animal immunoglobulin antibodies (Human Anti-Linda seAntibodies or HAMA), troph oblastic disease, and ne oplasms,may give positive r esults. DRUG OF ABUSE SCREEN [id number] 14:19:00 Test Item Value Reference Interpretation Comments Range UR COCAINE (test NEGATIVE NEGATIVE code = COCAU) UR MDMA (test code = NEGATIVE NEGATIVE MDMAQLU) UR CANNABINOIDS NEGATIVE NEGATIVE (test code = CANU) UR AMPHETAMINE (test POSITIVE NEGATIVE A If conf irmatory testing code = AMPHU) required, cont act laboratory. UR BARBITURATE QUAL NEGATIVE NEGATIVE (test code = BARBQLU) UR BENZODIAZEPINE NEGATIVE NEGATIVE (test code = BENZU) UR OPIATES QUAL NEGATIVE NEGATIVE (test code = OPIAQLU) UR PHENCYCLIDINE NEGATIVE NEGATIVE Urine Drug Abuse Screen (PCP) (test code = provides preliminary PHENCU) results thatmay be confirmed by samara marrero methods (i.e., [facility]. Results of scre en may not be usedin crimi nal justice, job performance or professionalcre dential review, or infa nt custody issues. Negati ve [place] Level ng/ml ------- ----- Cocaine 3 00 Methamphetamine (Ecstacy) 500 Cannabinoid s (THC) 50 Amphetamine 100 0 Barbiturates 2 00 Benzodiazepines 200 Opiates 300 Phencyclidi ne (PCP) 25 COMPREHENSIVE METABOLIC [id number] 14:19:00 Test Item Value Reference Range Interpretation Comments SODIUM (test code = 138 MMOL/L 133-145 N NA) POTASSIUM (test code = 3.3 MMOL/L 3.6-5.2 L K) CHLORIDE (test code = 102 MMOL/L 100-108 N CL) CARBON DIOXIDE (test 28 MMOL/L 22-32 N code = CO2) GLUCOSE (test code = 86 MG/DL 65-99 N Results of this assay GLU) method may be f alsely depressed orele vated if patient is t aking sulfasalazine. BLOOD UREA NITROGEN 7 MG/DL 6-20 N (test code = BUN) GLOMERULAR FILTRATION 106 64-149 N Report ing units: RATE (test code = GFR) mL/mi n/1.73m\\S\\2 (Modified MDRD Formula) CREATININE (test code 0.64 MG/DL 0.60-1.00 N = CREAT) TOTAL PROTEIN (test G/DL 6.4-8.2 code = PROT) ALBUMIN (test code = G/DL 3.4-5.0 ALB) GLOBULIN (test code = G/DL 1.5-3.8 GLOB) ALBUMIN/GLOBULIN RATIO 1.1-2.2 (test code = A/G) CALCIUM (test code = 8.7 MG/DL 8.7-10.5 N CA) BILIRUBIN TOTAL (test MG/DL 0.0-1.0 code = BILT) SGOT/AST (test code = Units/L 15-37 AST) SGPT/ALT (test code = Units/L 30-65 ALT) ALKALINE PHOSPHATASE Units/L 50-136 TOTAL (test code = ALKP) [id number] 14:19:00 Test Item Value Reference Range Interpretation Comments ACETAMINOPHEN (test code = ACET) MCG/ML 10-30 [id number] 14:19:00 Test Item Value Reference Range Interpretation Comments SALICYLATE (test code = TRAY) MG/DL 0-20 [id number] 14:19:00 Test Item Value Reference Range Interpretation Comments ALCOHOL (test code = ALC) MG/DL 0-10 CBC W/AUTO [id number] 14:09:00 Test Item Value Reference Range Interpretation Comments WHITE BLOOD CELL (test code = 11.71 x10 3/uL 4.80-10.80 H WBC) RED BLOOD CELL (test code = 3.81 x10 6/uL 4.2-5.4 L RBC) HEMOGLOBIN (test code = HGB) 12.3 G/DL 12.0-16.0 N HEMATOCRIT (test code = HCT) 36.8 % 37-47 L MEAN CELL VOLUME (test code = 96.6 FL 81-99 N MCV) MEAN CELL HGB (test code = 32.3 PG 27-31 H MCH) MEAN CELL HGB CONCENTRATION 33.4 G/DL 33-37 N (test code = MCHC) RED CELL DISTRIBUTION WIDTH 13.8 % 11.5-14.5 N (test code = RDW) PLATELET COUNT (test code = 325 x10 3/uL 150-450 N PLT) MEAN PLATELET VOLUME (test 9.4 FL 7.4-10.4 N code = MPV) NEUTROPHIL % (test code = NT%) 67.8 % 42-86 N LYMPHOCYTE % (test code = LY%) 24.0 % 24-44 N MONOCYTE % (test code = MO%) 6.1 % 0.0-4.0 H EOSINOPHIL % (test code = EO%) 1.9 % 0.0-2.7 N BASOPHIL % (test code = BA%) 0.2 % 0.0-0.5 N NEUTROPHIL # (test code = NT#) 7.95 x10 3/uL 1.8-7.7 H LYMPHOCYTE # (test code = LY#) 2.81 x10 3/uL 1.0-4.8 N MONOCYTE # (test code = MO#) 0.71 x10 3/uL 0.0-0.8 N EOSINOPHIL # (test code = EO#) 0.22 x10 3/uL 0.0-0.5 N BASOPHIL # (test code = BA#) 0.02 x10 3/uL 0.0-0.2 N Coronavirus 2019 nCoV [id number] 13:40:00 Test Item Value Reference Range Interpretation Comments Coronavirus 2019 nCoV Negative Negative ID NOW COVID-19 assay Bedside (test code = perform ed on the ID NOW [id number]) Instrument barrett rapid molecular in vi tro diagnostic test utilizing aniso thermal nucleic acid amplification t echnology intendedfor the qualitative det ection of nucleic acid fr om [id number] v iral RNA in direct nasal , nasopharyngeal orthroat swabs and nasal , nasopharyngeal or throat swabseluted in viral transport media from individuals who aresuspected of COVID-19 by their health care provider. Resul ts are for the identif ication of SARS-CoV-2 R NA.For Use Under an Em ergency Use Authorizati on (EUA) Only Negative r esults do not preclude SA RS-CoV-2 infection andsh ould not be used as the sole basis for patie nt managementdecis ions. Negative result s must be combined with clinicalobserva tions, patient history , and epidemiological informati on. COMPREHENSIVE METABOLIC [id number] 12:50:00 Test Item Value Reference Range Interpretation Comments SODIUM (test code = 139 MMOL/L 133-145 N NA) POTASSIUM (test code = 3.4 MMOL/L 3.6-5.2 L K) CHLORIDE (test code = 103 MMOL/L 100-108 N CL) CARBON DIOXIDE (test 25 MMOL/L 22-32 N code = CO2) GLUCOSE (test code = 89 MG/DL 65-99 N Results of this assay GLU) method may be f alsely depressed orele vated if patient is t aking sulfasalazine. BLOOD UREA NITROGEN 11 MG/DL 6-20 N (test code = BUN) GLOMERULAR FILTRATION 123 64-149 N Report ing units: RATE (test code = GFR) mL/mi n/1.73m\\S\\2 (Modified MDRD Formula) CREATININE (test code 0.56 MG/DL 0.60-1.00 L = CREAT) TOTAL PROTEIN (test 6.5 G/DL 6.4-8.2 N code = PROT) ALBUMIN (test code = 3.5 G/DL 3.4-5.0 N ALB) GLOBULIN (test code = 3.0 G/DL 1.5-3.8 N GLOB) ALBUMIN/GLOBULIN RATIO 1.2 1.1-2.2 N (test code = A/G) CALCIUM (test code = 8.3 MG/DL 8.7-10.5 L CA) BILIRUBIN TOTAL (test 0.5 MG/DL 0.0-1.0 N code = BILT) SGOT/AST (test code = 8 Units/L 15-37 L Result s of this assay AST) method may be f alsely depressed orele vated if patient is t aking sulfasalazine. SGPT/ALT (test code = 24 Units/L 30-65 L Result s of this assay ALT) method may be f alsely depressed orele vated if patient is t aking sulfasalazine. ALKALINE PHOSPHATASE 46 Units/L 50-136 L TOTAL (test code = ALKP) HCG [id number] 12:50:00 Test Item Value Reference Range Interpretation Comments HCG SERUM (test code 697900 0-6 H Reporti ng Units: = HCGQT) micro-internati onal units/mL Gestat ional Age hCG level------ --------- ---------0.2-1 week 5-501-2 weeks 50-5002-3 weeks 100-5,0003-4 we eks 500-10,0004-5 w eeks 1,000-50,0005-6 weeks 10,000-100,0006 -8 weeks 15,000-200,0002 -3 months 10,000-100,000 hCG levels rise rapidly du ring for 1 0-12 weeksand slowly decline to 1,000 - 50,000 in third trimester. Allison facturer Disclaimer:Valu es from different assay methods may vary. The use o fthis assay to monitor or t o diagnose patients with c anceror any condition unrel ated to has n ot beenapproved by the FDA or the manufacture r of this assay. UA RFLX [id number] 12:24:00 Test Item Value Reference Range Interpretation Comments UA COLOR (test code = COLU) Light-Yellow YELLOW UA APPEARANCE (test code = CLEAR CLEAR APPU) UA GLUCOSE DIPSTICK (test NORMAL mg/dL NEGATIVE code = DGLUU) UA BILIRUBIN DIPSTICK (test NEGATIVE NEGATIVE code = BILU) UA KETONE DIPSTICK (test code NEGATIVE mg/dL NEGATIVE = KETU) UA SPECIFIC GRAVITY (test 1.015 1.001-1.035 N code = SGU) UA BLOOD DIPSTICK (test code 2+ NEGATIVE A = LATOYA) UA PH DIPSTICK (test code = 7.0 5.5-7.0 N ROGELIO) UA PROTEIN DIPSTICK (test NEGATIVE mg/dL NEGATIVE code = PROU) UA UROBILINOGEN DIPSTICK NORMAL mg/dL NORMAL (test code = URO) UA NITRITE DIPSTICK (test NEGATIVE NEGATIVE code = RUTHIE) UA LEUKOCYTE ESTERASE NEGATIVE NEGATIVE DIPSTICK (test code = LEUU) UA COMMENT (test code = COMU) VOLUME 10-12 ML URINE SPECIMEN DESCRIPTION Clean Catch (test code = UASPEC) UA [id number] 12:24:00 Test Item Value Reference Range Interpretation Comments UA WBC (test code = WBCU) < 10 #/HPF 0-10 UA RBC (test code = RBCU) 3-5 #/HPF NONE SEEN A UA SQUAMOUS CELLS (test code 41 - 60 #/LPF <100 A = SQU) UA MUCUS (test code = MUCU) RARE #/lpf NONE SEEN UA CULTURE NEEDED? (test Criteria not met code = UACULT) CBC W/AUTO [id number] 12:21:00 Test Item Value Reference Range Interpretation Comments WHITE BLOOD CELL (test code = 9.40 x10 3/uL 4.80-10.80 N WBC) RED BLOOD CELL (test code = 4.14 x10 6/uL 4.2-5.4 L RBC) HEMOGLOBIN (test code = HGB) 12.9 G/DL 12.0-16.0 N HEMATOCRIT (test code = HCT) 39.0 % 37-47 N MEAN CELL VOLUME (test code = 94.2 FL 81-99 N MCV) MEAN CELL HGB (test code = MCH) 31.2 PG 27-31 H MEAN CELL HGB CONCENTRATION 33.1 G/DL 33-37 N (test code = MCHC) RED CELL DISTRIBUTION WIDTH 13.2 % 11.5-14.5 N (test code = RDW) PLATELET COUNT (test code = 315 x10 3/uL 150-450 N PLT) MEAN PLATELET VOLUME (test code 9.3 FL 7.4-10.4 N = MPV) NEUTROPHIL % (test code = NT%) 59.3 % 42-86 N IMMATURE GRANULOCYTE % (test 0.3 % 0.0-2.0 N code = IG%) LYMPHOCYTE % (test code = LY%) 31.7 % 24-44 N MONOCYTE % (test code = MO%) 7.4 % 0.0-4.0 H EOSINOPHIL % (test code = EO%) 1.0 % 0.0-2.7 N BASOPHIL % (test code = BA%) 0.3 % 0.0-0.5 N NUCLEATED RBC % (test code = 0.0 % 0.0-0.0 N NRBC%) NEUTROPHIL # (test code = NT#) 5.57 x10 3/uL 1.8-7.7 N IMMATURE GRANULOCYTE # (test 0.03 x10 3/uL 0.00-0.03 N code = IG#) LYMPHOCYTE # (test code = LY#) 2.98 x10 3/uL 1.0-4.8 N MONOCYTE # (test code = MO#) 0.70 x10 3/uL 0.0-0.8 N EOSINOPHIL # (test code = EO#) 0.09 x10 3/uL 0.0-0.5 N BASOPHIL # (test code = BA#) 0.03 x10 3/uL 0.0-0.2 N NUCLEATED RBC # (test code = 0.0 X10 3/uL 0.0-0.2 N NRBC#) UA RFLX [id number] 12:18:00 Test Item Value Reference Range Interpretation Comments UA COLOR (test code = COLU) Light-Yellow YELLOW UA APPEARANCE (test code = CLEAR CLEAR APPU) UA GLUCOSE DIPSTICK (test NORMAL mg/dL NEGATIVE code = DGLUU) UA BILIRUBIN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 The umbilical cord is 18.0 cm in length with an average diameter of 1.2 cm and grossly contains three vessels. The chorionic surface issteel blue, smooth and glistening with the usual arboreal vascular pattern noted. The membranes is monae and translucent, marginally attached. The maternal surface is beefy red with intact cotyledons. The specimen is serially sectioned to reveal a red-monae and spongy parenchyma with a 1.3 x 0.8 x 0.8 cm area of centrally located monae-white induration consistent with potential infarction, accountingfor less than 5% of the overall parenchyma. No areas of hemorrhage or calcification are noted on placenta B. Senior Grants Officer sections are submitted as follows: Cassette 1-3 - ict sales representative placenta A. Cassette 4 - placenta B membrane roll and umbilical cord segment. Cassette 5 - grossly normal parenchyma placenta B. Cassette 6 - placenta B area of potential infarction. JOB#: [id number] MICROSCOPIC DESCRIPTION The umbilical cord of twin A and twin B both show three blood vessel present. The membranes do not show inflammation. They are presumed to be diamniotic dichorionic gestation. Sections of both pl acentas show much smaller chorionic villi than expected for the gestational age. There is no villitis or infarction identified. JOB#: [id number] SPECIMEN PROCESSING * PROCESSING PERFORMED AT [facility]. SURGERY INFORMATION Surgery date 06/28/20 Surgeon(s): Signed SIGNATURE ON FILE VivianFarhat07/01/20 0944 END OF REPORT [id number] 05:53:00 Test Item Value Reference Range Interpretation Comments HEMATOCRIT (test code = HCT) 29.9 % 37-47 L HIV 1/2 RAPID [id number] 10:32:00 Test Item Value Reference Range Interpretation Comments HIV 1/2 RAPID SCREEN (test code = NonReactive NonReactive [id number]) COVID 19 Asymptomatic IH [id number] 07:14:00 Test Item Value Reference Interpretation Comments Range COVID 19 NEGATIVE Negative " The [facility] YANCI S [facility] Asymptomatic IH does not dif ferentiate AG (test code = betweenSARS- CoV and SARS-CoV-2 " COVNONPUIAG) The [facility] SARS Antigen [facility] employs immunofluoresce ncetechnology in a sandwich giovanny gn that is used with Sadia tode tect nucleocapsid protein from SA RS-CoV and SARS-CoV-2.This test allows for the detection o f SARS-CoV [id number]. The test detects, but does not differentiate,b etween the two viruses. " Resu lts are for the identification of HHMS-WoG-9bdkoq ocapsid protein antigen. Antige n is generallydetect able in upper respiratory spe cimens during the acutephase of i nfection. Positive result s indicate the presenceof alex l antigens, but clinical correl ation with patienthistory and other diagnostic info rmation is necessary todet ermine infection status. Positiv e results do not rule outbacteri al infection or co-infection wi th other viruses. Theagent detect ed may not be the definite cause of disease. " Negative result s should be treated as pres umptive " This test has not be en FDA cleared or approved; the t esthas been authorized by [facility] under an Emergency UseAu thorization (EUA) for use by labo ratories certified under the CLIA that meet the requir ements to perform moderate,high o r waived complexity test s. This test is authorized foru se at the Point of Care (POC), i.e., in patient caresettings op erating under a CLIA Certificat e of Waiver,Certific ate of Compliance, or Certificate of Accreditation COMPREHENSIVE METABOLIC [id number] 05:24:00 Test Item Value Reference Range Interpretation Comments SODIUM (test code = 133 MMOL/L 133-145 N NA) POTASSIUM (test code = 3.7 MMOL/L 3.6-5.2 N K) CHLORIDE (test code = 99 MMOL/L 100-108 L CL) CARBON DIOXIDE (test 21 MMOL/L 22-32 L code = CO2) GLUCOSE (test code = 91 MG/DL 65-99 N Results of this assay GLU) method may be f alsely depressed orele vated if patient is t aking sulfasalazine. BLOOD UREA NITROGEN 10 MG/DL 6-20 N (test code = BUN) GLOMERULAR FILTRATION 114 64-149 N Report ing units: RATE (test code = GFR) mL/mi n/1.73m\\S\\2 (Modified MDRD Formula) CREATININE (test code 0.60 MG/DL 0.60-1.00 N = CREAT) TOTAL PROTEIN (test 6.6 G/DL 6.4-8.2 N code = PROT) ALBUMIN (test code = 2.8 G/DL 3.4-5.0 L ALB) GLOBULIN (test code = 3.8 G/DL 1.5-3.8 N GLOB) ALBUMIN/GLOBULIN RATIO 0.7 1.1-2.2 L (test code = A/G) CALCIUM (test code = 9.0 MG/DL 8.7-10.5 N CA) BILIRUBIN TOTAL (test 0.3 MG/DL 0.0-1.0 N code = BILT) SGOT/AST (test code = 14 Units/L 15-37 L Result s of this assay AST) method may be f alsely depressed orele vated if patient is t aking sulfasalazine. SGPT/ALT (test code = 17 Units/L 30-65 L Result s of this assay ALT) method may be f alsely depressed orele vated if patient is t aking sulfasalazine. ALKALINE PHOSPHATASE 99 Units/L 50-136 N TOTAL (test code = ALKP) DRUG OF ABUSE SCREEN [id number] 05:20:00 Test Item Value Reference Interpretation Comments Range UR COCAINE (test NEGATIVE NEGATIVE code = COCAU) UR MDMA (test code = NEGATIVE NEGATIVE MDMAQLU) UR CANNABINOIDS NEGATIVE NEGATIVE (test code = CANU) UR AMPHETAMINE (test POSITIVE NEGATIVE A If conf irmatory testing code = AMPHU) required, cont act laboratory. UR BARBITURATE QUAL NEGATIVE NEGATIVE (test code = BARBQLU) UR BENZODIAZEPINE NEGATIVE NEGATIVE (test code = BENZU) UR OPIATES QUAL NEGATIVE NEGATIVE (test code = OPIAQLU) UR PHENCYCLIDINE NEGATIVE NEGATIVE Urine Drug Abuse Screen (PCP) (test code = provides preliminary PHENCU) results thatmay be confirmed by al elida methods (i.e., GC/MS) at [facility]. Results of scre en may not be usedin crimi nal justice, job performance or professionalcre dential review, or infa nt custody issues. Negativ e [place] Level ng/ml ------- ----- Cocaine 300 Methamphetamine (Ecstacy) 500 Cannabinoid s (THC) 50 Amphetamine 100 0 Barbiturates 20 0 Benzodiazepines 200 Opiates 300 Phencyclid ine (PCP) 25 PROTHROMBIN [id number] 05:20:00 Test Item Value Reference Range Interpretation Comments PROTHROMBIN TIME 13.0 SECONDS 9.3-12.4 H Referen ce Range PATIENT (test code = revised from 9.3-12.4 PTP) as of 11/05/18. INTERNATIONAL NORMAL 1.24 Recomme nded INR range RATIO (test code = (warfarin therapy): INR) 2.0 - 3.0INR (International Normalized Rati o) should beused w hen interpreting or al anticoaglulant therapy. For at rial fibrillation an d treatment orprevention of deep vein thrombosis . Patients with Palmaz-Dinesh s tent *: 2.0 - 3.0 Pa tients with mechanical heart valve *: 2.5 - 3.5 Patients with flex-stent *: 3 .0 - 4.0(*) = family nurse's suggested range Is patient on anticoagulants? UnknownCOMPREHENSIVE METABOLIC [id number] 05:19:00 Test Item Value Reference Range Interpretation Comments SODIUM (test code = 133 MMOL/L 133-145 N NA) POTASSIUM (test code = 3.7 MMOL/L 3.6-5.2 N K) CHLORIDE (test code = 99 MMOL/L 100-108 L CL) CARBON DIOXIDE (test 21 MMOL/L 22-32 L code = CO2) GLUCOSE (test code = 91 MG/DL 65-99 N Results of this assay GLU) method may be f alsely depressed orele vated if patient is t aking sulfasalazine. BLOOD UREA NITROGEN 10 MG/DL 6-20 N (test code = BUN) GLOMERULAR FILTRATION 114 64-149 N Report ing units: RATE (test code = GFR) mL/mi n/1.73m\\S\\2 (Modified MDRD Formula) CREATININE (test code 0.60 MG/DL 0.60-1.00 N = CREAT) TOTAL PROTEIN (test G/DL 6.4-8.2 code = PROT) ALBUMIN (test code = G/DL 3.4-5.0 ALB) GLOBULIN (test code = G/DL 1.5-3.8 GLOB) ALBUMIN/GLOBULIN RATIO 1.1-2.2 (test code = A/G) CALCIUM (test code = 9.0 MG/DL 8.7-10.5 N CA) BILIRUBIN TOTAL (test MG/DL 0.0-1.0 code = BILT) SGOT/AST (test code = Units/L 15-37 AST) SGPT/ALT (test code = Units/L 30-65 ALT) ALKALINE PHOSPHATASE Units/L 50-136 TOTAL (test code = ALKP) UA RFLX MICROSCOPIC [id number] 05:18:00 Test Item Value Reference Range Interpretation Comments UA COLOR (test code = COLU) YELLOW YELLOW UA APPEARANCE (test code = CLEAR CLEAR APPU) UA GLUCOSE DIPSTICK (test NEGATIVE mg/dL NEGATIVE code = DGLUU) UA BILIRUBIN DIPSTICK (test NEGATIVE NEGATIVE code = BILU) UA KETONE DIPSTICK (test NEGATIVE mg/dL NEGATIVE code = KETU) UA SPECIFIC GRAVITY (test 1.005 1.001-1.035 N code = SGU) UA BLOOD DIPSTICK (test code 3+ NEGATIVE A = LATOYA) UA PH DIPSTICK (test code = 7.0 5.5-7.0 N ROGELIO) UA PROTEIN DIPSTICK (test NEGATIVE mg/dL NEGATIVE code = PROU) UA UROBILINOGEN DIPSTICK NORMAL mg/dL NORMAL (test code = URO) UA NITRITE DIPSTICK (test NEGATIVE NEGATIVE code = RUTHIE) UA LEUKOCYTE ESTERASE TRACE NEGATIVE A DIPSTICK (test code = LEUU) UA COMMENT (test code = VOLUME 10-12 ML COMU) URINE SPECIMEN DESCRIPTION Clean Catch (test code = UASPEC) UA WBC (test code = WBCU) < 10 #/hpf <10 UA SQUAMOUS CELLS (test code 0 - 20 #/lpf <100 = SQU) UA CULTURE NEEDED? (test Criteria not met code = UACULT) Indication for culture: Suprapubic PainURINE SOURCE: Clean CatchUA MICROSCOPIC 2020-06-28 05:18:00 Test Item Value Reference Range Interpretation Comments UA RBC (test code = RBCU) 3-5 #/hpf NONE SEEN UA BACTERIA (test code = BACU) 1+ #/hpf NONE SEEN Indication for culture: Suprapubic PainURINE SOURCE: Clean CatchUA RFLX MICROSCOPIC [id number] 05:14:00 Test Item Value Reference Range Interpretation Comments UA COLOR (test code = COLU) YELLOW YELLOW UA APPEARANCE (test code = CLEAR CLEAR APPU) UA GLUCOSE DIPSTICK (test NEGATIVE mg/dL NEGATIVE code = DGLUU) UA BILIRUBIN DIPSTICK (test NEGATIVE NEGATIVE code = BILU) UA KETONE DIPSTICK (test code NEGATIVE mg/dL NEGATIVE = KETU) UA SPECIFIC GRAVITY (test 1.005 1.001-1.035 N code = SGU) UA BLOOD DIPSTICK (test code 3+ NEGATIVE A = LATOYA) UA PH DIPSTICK (test code = 7.0 5.5-7.0 N ROGELIO) UA PROTEIN DIPSTICK (test NEGATIVE mg/dL NEGATIVE code = PROU) UA UROBILINOGEN DIPSTICK NORMAL mg/dL NORMAL (test code = URO) UA NITRITE DIPSTICK (test NEGATIVE NEGATIVE code = RUTHIE) UA LEUKOCYTE ESTERASE TRACE NEGATIVE A DIPSTICK (test code = LEUU) UA COMMENT (test code = COMU) VOLUME 10-12 ML URINE SPECIMEN DESCRIPTION Clean Catch (test code = UASPEC) UA WBC (test code = WBCU) #/hpf <10 UA SQUAMOUS CELLS (test code #/lpf <100 = SQU) UA CULTURE NEEDED? (test code = UACULT) Indication for culture: Suprapubic PainURINE SOURCE: Clean CatchUA MICROSCOPIC 2020-06-28 05:14:00 Test Item Value Reference Range Interpretation Comments UA RBC (test code = RBCU) #/hpf NONE SEEN Indication for culture: Suprapubic PainURINE SOURCE: Clean CatchUA RFLX MICROSCOPIC [id number] 05:14:00 Test Item Value Reference Range Interpretation Comments UA COLOR (test code = COLU) YELLOW YELLOW UA APPEARANCE (test code = CLEAR CLEAR APPU) UA GLUCOSE DIPSTICK (test NEGATIVE mg/dL NEGATIVE code = DGLUU) UA BILIRUBIN DIPSTICK (test NEGATIVE NEGATIVE code = BILU) UA KETONE DIPSTICK (test code NEGATIVE mg/dL NEGATIVE = KETU) UA SPECIFIC GRAVITY (test 1.005 1.001-1.035 N code = SGU) UA BLOOD DIPSTICK (test code 3+ NEGATIVE A = LATOYA) UA PH DIPSTICK (test code = 7.0 5.5-7.0 N ROGELIO) UA PROTEIN DIPSTICK (test NEGATIVE mg/dL NEGATIVE code = PROU) UA UROBILINOGEN DIPSTICK NORMAL mg/dL NORMAL (test code = URO) UA NITRITE DIPSTICK (test NEGATIVE NEGATIVE code = RUTHIE) UA LEUKOCYTE ESTERASE TRACE NEGATIVE A DIPSTICK (test code = LEUU) UA COMMENT (test code = COMU) VOLUME 10-12 ML URINE SPECIMEN DESCRIPTION Clean Catch (test code = UASPEC) UA WBC (test code = WBCU) #/hpf <10 UA SQUAMOUS CELLS (test code #/lpf <100 = SQU) UA CULTURE NEEDED? (test code = UACULT) Indication for culture: Suprapubic PainURINE SOURCE: Clean CatchUA MICROSCOPIC 2020-06-28 05:14:00 Test Item Value Reference Range Interpretation Comments UA RBC (test code = RBCU) #/hpf NONE SEEN Indication for culture: Suprapubic PainURINE SOURCE: Clean CatchCBC W/AUTO DIFF 2020-06-28 05:12:00 Test Item Value Reference Range Interpretation Comments WHITE BLOOD CELL (test 15.58 x10 3/uL 4.80-10.80 H Res ults called to code = WBC) and read back Med DAVIS RN;0512, 06/28/20, D.LAB.SMV. RED BLOOD CELL (test 3.54 x10 6/uL 4.2-5.4 L code = RBC) HEMOGLOBIN (test code = 11.4 G/DL 12.0-16.0 L HGB) HEMATOCRIT (test code = 33.9 % 37-47 L HCT) MEAN CELL VOLUME (test 95.8 FL 81-99 N code = MCV) MEAN CELL HGB (test 32.2 PG 27-31 H code = MCH) MEAN CELL HGB 33.6 G/DL 33-37 N CONCENTRATION (test code = MCHC) RED CELL DISTRIBUTION 12.8 % 11.5-14.5 N WIDTH (test code = RDW) PLATELET COUNT (test 288 x10 3/uL 150-450 N code = PLT) MEAN PLATELET VOLUME 10.6 FL 7.4-10.4 H (test code = MPV) NEUTROPHIL % (test code 74.6 % 42-86 N = NT%) LYMPHOCYTE % (test code 16.8 % 24-44 L = LY%) MONOCYTE % (test code = 7.5 % 0.0-4.0 H MO%) EOSINOPHIL % (test code 1.0 % 0.0-2.7 N = EO%) BASOPHIL % (test code = 0.1 % 0.0-0.5 N BA%) NEUTROPHIL # (test code 11.62 x10 3/uL 1.8-7.7 H = NT#) LYMPHOCYTE # (test code 2.62 x10 3/uL 1.0-4.8 N = LY#) MONOCYTE # (test code = 1.17 x10 3/uL 0.0-0.8 H MO#) EOSINOPHIL # (test code 0.15 x10 3/uL 0.0-0.5 N = EO#) BASOPHIL # (test code = 0.02 x10 3/uL 0.0-0.2 N BA#) - XR FOOT 3+V [id number] 23:33:00 Patient Name: TAYLOR SHULTZ Unit No: [id number] EXAMS: CPT CODE: [id number] XR FOOT 3+[place] [address] Reason: LATERAL ANKLE PAIN, PAIN BASE 5 MT EXAM: XR Left Foot Complete EXAM DATE/TIME: 05/26/2019 10:55 PM CLINICAL HISTORY: 33 years old, female; Other: Fall; Additional info: Lateral ankle pain, pain base 5 mt TECHNIQUE: Imaging protocol: XR Left foot. Views: 3 or more views. COMPARISON: No relevant prior studies available. FINDINGS: Bones/joints: No acute fracture or dislocation. Soft tissues:Possible tiny ankle joint effusion. Soft tissue swelling in anterior aspect of the ankle. IMPRESSION: 1. No acute fracture or dislocation. 2. Tiny ankle joint effusion. 3. Soft tissue swelling in the anterior aspect of the ankle. at 2333 Reported and signed by: Keturah Montanez CC: Ezequiel Thompson DO; Luis Toussaint MD Technologist: Karuna Jimenez RT CT Trscrpt Dt/ (9495)VRAD.VR Orig Print D/T: S: 05/26/2019 (6842) [place] NAME: TAYLOR SHULTZ [address] [place] [address] PHYS: Ezequiel Silva DO [address] : 1985 AGE: 33 SEX: F [place], [place] [address] LOC: D.PER PHONE #: [phone] EXAM DATE: 05/26/2019 STATUS: REG ER FAX #: RAD NO: DC Dt: PAGE 1 Signed Report- XR ANKLE 3+V [id number] 23:29:00 Patient Name: TAYLOR SHULTZ Unit No: [id number] EXAMS: CPT CODE: [id number] XR ANKLE 3+V LT [address] Reason: LATERAL ANKLE PAIN, PAIN BASE 5 MT EXAM: XR Left Ankle EXAM DATE/TIME: 05/26/2019 10:55 PM CLINICAL HISTORY: 33 years old, female; Other: Fall; Additional info: Lateral ankle pain, pain base 5 mt TECHNIQUE: Imaging protocol: XR Left ankle. Views: 3 or more views. COMPARISON: CR XR FOOT 3+VLT 05/26/2019 10:34 PM FINDINGS: Bones/joints: Normal. Soft tissues: Soft tissue swelling in anterior and medial aspect of the ankle. IMPRESSION: No acute fracture or dislocation. Soft tissue swelling as noted above. at 2329 Reported and signed by: Keturah Montanez CC: Ezequielviridiana Thompson DO; Luis Toussaint MD Technologist: Karuna Jimenez RT CT Trscrpt Dt/ (913)VRAD.VR Orig Print D/T: S: 05/26/2019 (6802) [place] NAME: TAYLOR SHULTZ [address] [place] [address] PHYS: Ezequiel Silva DO [address] : 1985 AGE: 33 SEX: F [place], [place] [address] LOC: D.PER PHONE #: [phone] EXAM DATE: 05/26/2019 STATUS: REG ER FAX #: RAD NO: DC Dt: PAGE 1 Signed Report- XR KNEE 4+V [id number] 22:18:00 Patient Name: TAYLOR SHULTZ Unit No: [id number] EXAMS: CPT CODE: [id number] XR KNEE 4+V LT [address] Reason: FALL, LAC TO LEFT KNEE EXAM: XR Left Knee EXAM DATE/TIME: 05/26/2019 10:07 PM CLINICAL HISTORY: 33 years old, female; Other: Fall; Additional info: Fall, lac to left knee TECHNIQUE: Imaging protocol: XR Left knee. Views: 4 or more views. COMPARISON: No relevant prior studies available. FINDINGS: Bones/joints: Normal. Soft tissues: Normal. IMPRESSION: No acute findings. at 2218 Reported and signed by: Keturah Stallings MDvRad CC: Karuna Green CONVERTER SUPERVISOR; Ezequiel Thompson DO; Luis Toussaint MD Technologist: Karuna Jimenez RT CT Trscrpt Dt/ (2217)VRAD.VR Orig Print D/T: S: 05/26/2019 (2217) [place] NAME: TAYLOR SHULTZ [address] [place] [address] PHYS: MAN - Ezequiel Thompson DO [address] : 1985 AGE: 33SEX: F [place], [place] [address] LOC: D.PER PHONE #: [phone] EXAM DATE: 05/26/2019 STATUS: REG ER FAX #: RAD NO: DC Dt: PAGE 1 Signed ReportBASIC METABOLIC [id number] 18:21:00 Test Item Value Reference Range Interpretation Comments SODIUM (test code = 145 MMOL/L 133-145 N NA) POTASSIUM (test code = 3.5 MMOL/L 3.6-5.2 L K) CHLORIDE (test code = 107 MMOL/L 100-108 N CL) CARBON DIOXIDE (test 29 MMOL/L 22-32 N code = CO2) GLUCOSE (test code = 100 MG/DL 65-99 H Results of this assay GLU) method may be f alsely depressed orele vated if patient is t aking sulfasalazine. BLOOD UREA NITROGEN 13 MG/DL 6-20 N (test code = BUN) GLOMERULAR FILTRATION 101 64-149 N Report ing units: RATE (test code = GFR) mL/mi n/1.73m\\S\\2 (Modified MDRD Formula) CREATININE (test code 0.67 MG/DL 0.60-1.00 N = CREAT) CALCIUM (test code = 8.5 MG/DL 8.7-10.5 L CA) HCG [id number] 18:21:00 Test Item Value Reference Range Interpretation Comments HCG SERUM (test code 143 0-6 H Reporti ng Units: = HCGQT) micro-internati onal units/mL Gestat ional Age hCG level------ --------- ---------0.2-1 week 5-501-2 weeks 50-5002-3 weeks 100-5,0003-4 we eks 500-10,0004-5 w eeks 1,000-50,0005-6 weeks 10,000-100,0006 -8 weeks 15,000-200,0002 -3 months 10,000-100,000 hCG levels rise rapidly du ring for 1 0-12 weeksand slowly decline to 1,000 - 50,000 in third trimester. Manu facturer Disclaimer:Valu es from different assay methods may vary. The use o fthis assay to monitor or t o diagnose patients with c anceror any condition unrel ated to has n ot beenapproved by the FDA or the manufacture r of this assay. BASIC METABOLIC [id number] 18:00:00 Test Item Value Reference Range Interpretation Comments SODIUM (test code = 145 MMOL/L 133-145 N NA) POTASSIUM (test code = 3.5 MMOL/L 3.6-5.2 L K) CHLORIDE (test code = 107 MMOL/L 100-108 N CL) CARBON DIOXIDE (test 29 MMOL/L 22-32 N code = CO2) GLUCOSE (test code = 100 MG/DL 65-99 H Results of this assay GLU) method may be f alsely depressed orele vated if patient is t aking sulfasalazine. BLOOD UREA NITROGEN 13 MG/DL 6-20 N (test code = BUN) GLOMERULAR FILTRATION 101 64-149 N Report ing units: RATE (test code = GFR) mL/mi n/1.73m\\S\\2 (Modified MDRD Formula) CREATININE (test code 0.67 MG/DL 0.60-1.00 N = CREAT) CALCIUM (test code = 8.5 MG/DL 8.7-10.5 L CA) HCG [id number] 18:00:00 Test Item Value Reference Range Interpretation Comments HCG SERUM (test code 0-6 H Reporti ng Units: = HCGQT) micro-internati onal units/mL Gestat ional Age hCG level------ --------- ---------0.2-1 week 5-501-2 weeks 50-5002-3 weeks 100-5,0003-4 we eks 500-10,0004-5 w eeks 1,000-50,0005-6 weeks 10,000-100,0006 -8 weeks 15,000-200,0002 -3 months 10,000-100,000 hCG levels rise rapidly du ring for 1 0-12 weeksand slowly decline to 1,000 - 50,000 in third trimester. Allison facturer Disclaimer:Valu es from different assay methods may vary. The use o fthis assay to monitor or t o diagnose patients with c anceror any condition unrel ated to has n ot beenapproved by the FDA or the manufacture r of this assay. CBC W/AUTO [id number] 17:25:00 Test Item Value Reference Range Interpretation Comments WHITE BLOOD CELL (test code = 9.28 x10 3/uL 4.80-10.80 N WBC) RED BLOOD CELL (test code = 3.46 x10 6/uL 4.2-5.4 L RBC) HEMOGLOBIN (test code = HGB) 11.3 G/DL 12.0-16.0 L HEMATOCRIT (test code = HCT) 34.5 % 37-47 L MEAN CELL VOLUME (test code = 99.7 FL 81-99 H MCV) MEAN CELL HGB (test code = MCH) 32.7 PG 27-31 H MEAN CELL HGB CONCENTRATION 32.8 G/DL 33-37 L (test code = MCHC) RED CELL DISTRIBUTION WIDTH 12.6 % 11.5-14.5 N (test code = RDW) PLATELET COUNT (test code = 290 x10 3/uL 150-450 N PLT) MEAN PLATELET VOLUME (test code 10.3 FL 7.4-10.4 N = MPV) NEUTROPHIL % (test code = NT%) 67.6 % 42-86 N IMMATURE GRANULOCYTE % (test 0.3 % 0.0-2.0 N code = IG%) LYMPHOCYTE % (test code = LY%) 25.3 % 24-44 N MONOCYTE % (test code = MO%) 5.5 % 0.0-4.0 H EOSINOPHIL % (test code = EO%) 1.1 % 0.0-2.7 N BASOPHIL % (test code = BA%) 0.2 % 0.0-0.5 N NUCLEATED RBC % (test code = 0.0 % 0.0-0.0 N NRBC%) NEUTROPHIL # (test code = NT#) 6.27 x10 3/uL 1.8-7.7 N IMMATURE GRANULOCYTE # (test 0.03 x10 3/uL 0.00-0.03 N code = IG#) LYMPHOCYTE # (test code = LY#) 2.35 x10 3/uL 1.0-4.8 N MONOCYTE # (test code = MO#) 0.51 x10 3/uL 0.0-0.8 N EOSINOPHIL # (test code = EO#) 0.10 x10 3/uL 0.0-0.5 N BASOPHIL # (test code = BA#) 0.02 x10 3/uL 0.0-0.2 N NUCLEATED RBC # (test code = 0.0 X10 3/uL 0.0-0.2 N NRBC#) - US PREG AFTER [id number] 16:20:00 Patient Name: TAYLOR SHULTZ Unit No: [id number] EXAMS: CPT CODE: [id number] US PREG AFTER TRI [id number] History: pelvic pain. Technique: Arango scale and Doppler ultrasound evaluation of the pelvis were performed. Comparison: None. Findings: The uterus measures 12.8 x 7.8 x 8.6 cm. The endometrium is heterogeneously thickened measuring 2.3 cm. The right ovary measures 4.2 x 3.7 x 4.2 cm. The left ovary is not visualized. No free fluid is seen. Impression: 1. Heterogeneous thickened endometrium measuring 2.3 cm 2. No intrauterine identified. Findings represent of unknown clinical location and viability. Ectopic cannot be entirely excluded. In the hemodynamic stable patient, a short-term sonographic follow-up in combination with serial beta-hCG determination is re commended until definite diagnosis established. 3. The left ovary is not visualized. at 1620 Reported and signed by: Edin Lott MD CC: Td Serrano MD; Poonam duran CONVERTER SUPERVISOR; Luis Toussaint MD Technologist: Analia Hussein Trnscrbd D/ (1620) [email or web address] Orig Print D/T: S: 05/12/2019 (1623) Probe: [facility] NAME: TAYLOR SHULTZ [id number] PH[address]: JENN[place]ER - [place] [address] : 1985 AGE: 33 SEX: F LOC: [facility] PHONE #: [phone] EXAM DATE: 05/12/2019 STATUS: REG ER FAX #: RAD NO: Page 1 Signed ReportUA RFLX MICROSCOPIC [id number] 16:09:00 Test Item Value Reference Range Interpretation Comments UA COLOR (test code = COLU) YELLOW YELLOW UA APPEARANCE (test code = CLEAR CLEAR APPU) UA GLUCOSE DIPSTICK (test NEGATIVE mg/dL NEGATIVE code = DGLUU) UA BILIRUBIN DIPSTICK (test NEGATIVE NEGATIVE code = BILU) UA KETONE DIPSTICK (test NEGATIVE mg/dL NEGATIVE code = KETU) UA SPECIFIC GRAVITY (test 1.015 1.001-1.035 N code = SGU) UA BLOOD DIPSTICK (test code NEGATIVE NEGATIVE = LATOYA) UA PH DIPSTICK (test code = 8.0 5.5-7.0 H ROGELIO) UA PROTEIN DIPSTICK (test NEGATIVE mg/dL NEGATIVE code = PROU) UA UROBILINOGEN DIPSTICK NORMAL mg/dL NORMAL (test code = URO) UA NITRITE DIPSTICK (test NEGATIVE NEGATIVE code = RUTHIE) UA LEUKOCYTE ESTERASE NEGATIVE NEGATIVE DIPSTICK (test code = LEUU) UA COMMENT (test code = VOLUME 10-12 ML COMU) URINE SPECIMEN DESCRIPTION Clean Catch (test code = UASPEC) UA WBC (test code = WBCU) < 10 #/hpf <10 UA SQUAMOUS CELLS (test code 0 - 20 #/lpf <100 = SQU) UA CULTURE NEEDED? (test Criteria not met code = UACULT) UA RFLX MICROSCOPIC [id number] 16:08:00 Test Item Value Reference Range Interpretation Comments UA COLOR (test code = COLU) YELLOW YELLOW UA APPEARANCE (test code = CLEAR CLEAR APPU) UA GLUCOSE DIPSTICK (test NEGATIVE mg/dL NEGATIVE code = DGLUU) UA BILIRUBIN DIPSTICK (test NEGATIVE NEGATIVE code = BILU) UA KETONE DIPSTICK (test code NEGATIVE mg/dL NEGATIVE = KETU) UA SPECIFIC GRAVITY (test 1.015 1.001-1.035 N code = SGU) UA BLOOD DIPSTICK (test code NEGATIVE NEGATIVE = LATOYA) UA PH DIPSTICK (test code = 8.0 5.5-7.0 H ROGELIO) UA PROTEIN DIPSTICK (test NEGATIVE mg/dL NEGATIVE code = PROU) UA UROBILINOGEN DIPSTICK NORMAL mg/dL NORMAL (test code = URO) UA NITRITE DIPSTICK (test NEGATIVE NEGATIVE code = RUTHIE) UA LEUKOCYTE ESTERASE NEGATIVE NEGATIVE DIPSTICK (test code = LEUU) UA COMMENT (test code = COMU) VOLUME 10-12 ML URINE SPECIMEN DESCRIPTION Clean Catch (test code = UASPEC) UA WBC (test code = WBCU) #/hpf <10 UA SQUAMOUS CELLS (test code #/lpf <100 = SQU) UA CULTURE NEEDED? (test code = UACULT)
[2022-12-29] MEDS ORDERED: NA CHLORIDE 0.9% 1,000 ML ONE (18:21)
[2022-12-29 18:24] LABS: Absolute Lymphocytes (CBC) 1.8 K/uL (0.7-4.9); Hematocrit 39.4 % (36.0-45.0); Lymphocytes % 25.4 % (15.3-44.8); MCV 93.1 fL (80-100); MPV 8.1 fL (7.6-11.3); RBC Red Blood Cell Count 4.23 M/uL (3.86-4.86)
[2022-12-29 18:35] LABS: Potassium 4.2 mmol/L (3.5-5.1)
[2022-12-29] MEDS ORDERED: ONDANSETRON 4 MG/2 ML VIAL ONE (18:40)
[2022-12-29 19:15] LABS: Urine Blood 3+ (Negative); Urine Glucose Negative (Negative); Urine Protein Trace (Negative); Urine Specific Gravity 1.025 (1.005-1.030)
[2022-12-29 19:51] LABS: Barbiturates NEGATIVE (NEGATIVE); Benzodiazepines NEGATIVE (NEGATIVE); Cocaine NEGATIVE (NEGATIVE); METHAMPHETAM POSITIVE (NEGATIVE); Methadone NEGATIVE (NEGATIVE); Opiates NEGATIVE (NEGATIVE); Phencyclidine NEGATIVE (NEGATIVE); THC Cannibis POSITIVE (NEGATIVE)
--- NOTE | 2022-12-29 20:09 | EDPHYS ---
Physician Documentation [facility] Name: Yenifer Ramos Age: 37 yrs Sex: Female : 1985 Arrival Date: 12/29/2022 Time: 17:37 Bed 15 Private MD: ED Physician Heriberto Kessler HPI: 12/29 21:01 This 37 yrs old Female presents to ER via EMS with complaints of Drug Abuse. kb 21:01 The patient presents to the emergency department after a known overdose, a result of recreational substance abuse. Context: Method: the patient has a confirmed or suspected inhalation, synthetic marijuana, Time: just prior to arrival, the OD/poisoning occurred at at home. Associated signs and symptoms: Pertinent positives: decreased level of consciousness. Severity of symptoms: At their worst the symptoms were moderate in the emergency department the symptoms have improved. Onset: The symptoms/episode began/occurred just prior to arrival. Associated signs and symptoms: The patient has no apparent associated signs or symptoms. Modifying factors: The patient symptoms are alleviated by nothing, the patient symptoms are aggravated by nothing. The patient has not experienced similar symptoms in the past. The patient has not recently seen a physician. EMS reports pt was altered after smoking synthetic marijuana and someone else in the complex called them. States pt is more alert than she was when they initially got to her. Historical: - Allergies: 17:41 No Known Allergies; db - Immunization history:: Adult Immunizations unknown, Client reports receiving the 2nd dose of the Covid vaccine. - Social history:: Smoking status: Patient reports the use of cigarette tobacco products, Patient uses street drugs. ROS: 21:01 Constitutional: Negative for fever, chills, and weight loss. kb 21:01 Neuro: Positive for altered mental status. 21:01 All other systems are negative. Exam: 21:01 Constitutional: This is a well developed, well nourished patient who is awake, alert, kb and in no acute distress. Head/Face: Normocephalic, atraumatic. ENT: Moist Mucous membranes Cardiovascular: Regular rate and rhythm with a normal S1 and S2. No gallops, murmurs, or rubs. No pulse deficits. Respiratory: Respirations even and unlabored. No increased work of breathing. Talking in full sentences Abdomen/GI: Soft, non-tender. No distention Skin: Warm, dry with normal turgor. Normal color. MS/ Extremity: Pulses equal, no cyanosis. Neurovascular intact. Full, normal range of motion. Neuro: Awake and alert, GCS 15, oriented to person, place, time, and situation. Moves all extremities. Normal gait. Psych: Awake, alert, with orientation to person, place and time. Behavior, mood, and affect are within normal limits. Vital Signs: 17:27 BP 104 / 41; Pulse 90; Resp 18; Temp 98.9(O); Pulse Ox 99% on R/A; Weight 88.45 kg (M); db Height 5 ft. 11 in. (180.34 cm); Pain 0/10; 18:30 BP 160 / 80; Pulse 86; Resp 18; Pulse Ox 96% on R/A; Pain 3/10; db 20:34 BP 116 / 80; Pulse 76; Resp 18; Temp 98.6; Pulse Ox 100% on R/A; Pain 0/10; ke1 17:27 Body Mass Index 27.20 (88.45 kg, 180.34 cm) db [place] Coma Score: 17:41 Eye Response: spontaneous(4). Verbal Response: confused(4). Motor Response: obeys db commands(6). Total: 14. MDM: 17:38 Patient medically screened. kb 20:59 Differential diagnosis: polypharmacy, over medication, drug abuse. Data reviewed: vital kb signs, nurses notes. Historians other than the Patient: EMS: [facility]. Counseling: I had a detailed discussion with the patient and/or guardian regarding: the historical points, exam findings, and any diagnostic results supporting the discharge/admit diagnosis, lab results, the need for outpatient follow up, a family practitioner, to return to the emergency department if symptoms worsen or persist or if there are any questions or concerns that arise at home. ED course: Pt continues to deny suicidal ideations. Pt is awake, alert and oriented. Pt has responsible adult to pick her up. 12/29 17:38 Order name: CBC with Diff; Complete Time: 18:31 kb 12/29 17:38 Order name: Basic Metabolic Panel; Complete Time: 18:38 kb 12/29 17:38 Order name: UDS; Complete Time: 20:07 kb 12/29 19:15 Order name: Urine Dipstick-Ancillary; Complete Time: 19:19 EDFL 12/29 17:38 Order name: IV Start; Complete Time: 19:14 kb Administered Medications: 18:20 Drug: NS 0.9% 1000 ml Route: IV; Rate: 1000 ml; Site: right antecubital; db 18:38 Drug: Zofran (Ondansetron) 4 mg Route: IVP; Site: right antecubital; db 19:14 Follow up: Response: No adverse reaction db Disposition Summary: 12/29/22 20:08 Discharge Ordered Location: Home kb Condition: Stable kb Diagnosis - Drug abuse - synthetic marijuana kb Followup: kb - With: Emergency Department - When: As needed - Reason: Worsening of condition Followup: kb - With: Private Physician - When: 2 - 3 days - Reason: Recheck today's complaints, Continuance of care, Re-evaluation by your physician Discharge Instructions: - Discharge Summary Sheet kb - Illegal Drug Use Information, Adult kb Forms: - Medication Reconciliation Form kb - Thank You Letter kb - Antibiotic Education kb - Prescription Opioid Use kb Signatures: Dispatcher [employer] Marcella Toribio, GOVERNMENT AFFAIRS DIRECTOR-C GOVERNMENT AFFAIRS DIRECTOR-Hilda Richter, RN RN db
--- NOTE | 2022-12-29 20:09 | ER ---
Nurse's Notes [facility] Name: Yenifer Ramos Age: 37 yrs Sex: Female : 1985 Arrival Date: 12/29/2022 Time: 17:37 Bed 15 Private MD: Diagnosis: Drug abuse - synthetic marijuana Presentation: 12/29 17:27 Chief complaint: EMS states: patient found outside of hotel room with seizure like db activity. patient admits to smoking synthetic weed. Patient is slow to respond. has a history of seizure medications and has not been compliant with seizure medications. Coronavirus screen: Vaccine status: Patient reports receiving the 2nd dose of the covid vaccine. Client denies travel out of the [place] in the last 14 days. At this time, the client does not indicate any symptoms associated with coronavirus-19. Ebola Screen: Patient negative for fever greater than or equal to 101.5 degrees Fahrenheit, and additional compatible Ebola Virus Disease symptoms Patient denies exposure to infectious person. Patient denies travel to an Ebola-affected area in the 21 days before illness onset. No symptoms or risks identified at this time. Initial Sepsis Screen: Does the patient meet any 2 criteria? No. Patient's initial sepsis screen is negative. Does the patient have a suspected source of infection? No. Patient's initial sepsis screen is negative. Risk Assessment: Do you want to hurt yourself or someone else? Patient reports no desire to harm self or others. Onset of symptoms was December 29, 2022. 17:27 Method Of Arrival: EMS db 17:27 Acuity: CALOS 2 db Triage Assessment: 17:41 General: Appears in no apparent distress. comfortable, Behavior is calm, cooperative, db appropriate for age, quiet. Pain: Denies pain. Neuro: Level of Consciousness is awake, alert, confused, Oriented to person, place. Cardiovascular: No deficits noted. Historical: - Allergies: 17:41 No Known Allergies; db - Immunization history:: Adult Immunizations unknown, Client reports receiving the 2nd dose of the Covid vaccine. - Social history:: Smoking status: Patient reports the use of cigarette tobacco products, Patient uses street drugs. Screenin:52 [facility] ED Fall Risk Assessment (Adult) History of falling in the last 3 months, db including since admission Yes- single mechanical fall (1 pt) Confusion or Disorientation No (0 pts) Intoxicated or Sedated No (0 pts) Impaired Gait No (0 pts) Mobility Assist Device Used No (0 pt) Altered Elimination No (0 pt) Score/Fall Risk Level 0 - 2 = Low Risk Oriented to surroundings, Maintained a safe environment. Abuse screen: Denies threats or abuse. Denies injuries from another. Nutritional screening: No deficits noted. Tuberculosis screening: No symptoms or risk factors identified. Assessment: 18:25 Reassessment: patient reports nausea. ice chips and blanket given. notified provider. db new order for zofran received. 18:30 Pain: Complains of pain in head Pain currently is 3 out of 10 on a pain scale. Neuro: db Reports headache since with nausea slight denies wanting pain meds. 18:38 Reassessment: Patient appears in no apparent distress at this time. Patient and/or db family updated on plan of care and expected duration. Pain level reassessed. Patient is alert, oriented x 3, equal unlabored respirations, skin warm/dry/pink. patient pacing room. General: Appears in no apparent distress. comfortable, Behavior is cooperative, anxious, crying. 18:50 Reassessment: Patient appears in no apparent distress at this time. patient using phone db to call friend. 18:50 Reassessment: Patient appears in no apparent distress at this time. Patient and/or db family updated on plan of care and expected duration. Pain level reassessed. Patient is alert, oriented x 3, equal unlabored respirations, skin warm/dry/pink. 18:55 Reassessment: patient ambulatory to the restroom. db 18:55 Neuro: Level of Consciousness is awake, alert, obeys commands, Oriented to person, db place, time, situation, Moves all extremities. 20:35 Reassessment: Patient appears in no apparent distress at this time. Patient is alert, ke1 oriented x 3, equal unlabored respirations, skin warm/dry/pink. Patient denies pain at this time. Patient states feeling better. Patient states symptoms have improved. Vital Signs: 17:27 BP 104 / 41; Pulse 90; Resp 18; Temp 98.9(O); Pulse Ox 99% on R/A; Weight 88.45 kg (M); db Height 5 ft. 11 in. (180.34 cm); Pain 0/10; 18:30 BP 160 / 80; Pulse 86; Resp 18; Pulse Ox 96% on R/A; Pain 3/10; db 20:34 BP 116 / 80; Pulse 76; Resp 18; Temp 98.6; Pulse Ox 100% on R/A; Pain 0/10; ke1 17:27 Body Mass Index 27.20 (88.45 kg, 180.34 cm) db [place] Coma Score: 17:41 Eye Response: spontaneous(4). Verbal Response: confused(4). Motor Response: obeys db commands(6). Total: 14. ED Course: 17:37 Patient arrived in ED. db 17:38 Marcella Sinclair FNP-C [facility]. kb 17:38 Heriberto Kessler MD is Attending Physician. kb 17:41 Triage completed. db 17:43 Arm band placed on right wrist. db 18:00 Inserted saline lock: 20 gauge in right antecubital area, using aseptic technique. db Blood collected. 18:05 Hilda Manriquez, RN is Primary Nurse. db 20:35 No provider procedures requiring assistance completed. IV discontinued. ke1 20:40 Bed in low position. ke1 20:40 Seizure precautions initiated. ke1 Administered Medications: 18:20 Drug: NS 0.9% 1000 ml Route: IV; Rate: 1000 ml; Site: right antecubital; db 18:38 Drug: Zofran (Ondansetron) 4 mg Route: IVP; Site: right antecubital; db 19:14 Follow up: Response: No adverse reaction db Medication: 20:41 VIS not applicable for this client. ke1 Outcome: 20:08 Discharge ordered by . kb 20:39 Discharged to home ambulatory. ke1 20:39 Condition: good 20:39 Discharge instructions given to patient. 20:41 Patient left the ED. ke1 Signatures: Marcella Sinclair FNP-C FNP-Ckb Ebrottie, Kouassi, RN RN ke1 Hilda Manriquez, DONNA RN db Corrections: (The following items were deleted from the chart) 18:39 18:38 General: Appears in no apparent distress. comfortable, Behavior is calm, db cooperative, appropriate for age, db
[2022-12-29 21:14] VITALS: BP 116/80; TEMP 98.6; O2SAT 100
== END 2022-12-29 20:41 | disposition home or self-care (01) ==
LOC: ER 17:28
DX: F12.10 Cannabis abuse, uncomplicated (principal); F17.210 Nicotine dependence, cigarettes, uncomplicated
CPT/HCPCS: 85025; 80048; 36415; 81003; 80307; 96374; 99284; J7030; J2405